=== PATIENT | male | born 1950 | race Caucasian/White ===

== ENCOUNTER 2017-02-09 14:39 | Inpatient (IN) | payer MEDICARE, OTHER ==
[2017-02-09] MEDS ORDERED: Azithromycin 500 MG VIAL ONE (15:16)
[2017-02-09] MEDS ORDERED: Lorazepam 2 MG/ML VIAL ONE (15:17)
[2017-02-09 15:22] LABS: Hemoglobin 14.1 g/dL (14.0-18.0); Mean Corpuscular HGB CONC 33.7 g/dL (32.0-36.0); Mean Corpuscular Hemoglobin 33.9 pg (27.0-31.0); Mean Platelet Volume 7.6 fL (7.4-10.4); Platelet Count 384 thou/uL (130-400); RBC Distribution Width 13.5 % (11.5-14.5); Red Blood Cell (RBC) Count 4.18 mill/uL (4.70-6.10); White Blood Cell (WBC) Count 29.6 thou/uL (4.8-10.8)
[2017-02-09] MEDS ORDERED: Piperacillin/Tazobactam 4.5 GM in Sodium Chloride 0.9% 100 ML IVPB SCH (15:30)
[2017-02-09 15:33] LABS: ALT (SGPT) 12 U/L (8-55); AST (SGOT) 11 U/L (5-34); Albumin 3.6 g/dL (3.4-4.8); Alkaline Phosphatase 113 U/L (40-150); Anion Gap 11 mmol/L (10-20); BUN (Urea Nitrogen) 10 mg/dL (8.4-25.7); Bilirubin, Total 0.6 mg/dL (0.2-1.2); Calc. Creatinine Clearance 0 mL/min (70-130); Calcium 9.4 mg/dL (7.8-10.44); Carbon Dioxide 27 mmol/L (23-31); Chloride 103 mmol/L (98-107); Estimated GFR-MDRD Greater than 90; Globulin 3.4 g/dL (2.4-3.5); Glucose 85 mg/dL (80-115); Potassium 4.1 mmol/L (3.5-5.1); Sodium 137 mmol/L (136-145)
[2017-02-09 15:51] LABS: CKMB 1.1 ng/mL (0-6.6); Lymphocytes 19 % (21-51); MDiff Complete? YES; Monocytes 6 % (0-10); Neutrophil 75 % (42-75); PLT Morphology Comment Appears Adequate; Troponin I 0.018 ng/mL (< 0.028)
--- NOTE | 2017-02-09 16:11 | RAD ---
FRONTAL VIEW CHEST: Date: 02/09/17 INDICATION: Sepsis. Difficulty breathing. FINDINGS: There is abnormal dense consolidation of the right apex with internal lucency. Rounded region of alve olar and interstitial density is seen at the lateral left mid lung zone. There is a spiculated nodula r density with adjacent linear density at the upper to mid right lung. Diffuse interstitial prominenc e of each lung present. There is hyperinflation compatible with COPD. IMPRESSION: Multifocal pleural and parenchymal opacities of the lungs bilaterally. Findings may be on the basis o f atypical infectious process. Underlying neoplasm not excluded. Recommend pulmonary medicine consult ation for further care. POS: ARMANDO
[2017-02-09 18:58] LABS: Troponin I 0.025 ng/mL (< 0.028)
[2017-02-09] MEDS ORDERED: Ondansetron HCl/PF 4 MG/2 ML Vial IVP PRN ×2 (19:35→19:36)
[2017-02-09] MEDS ORDERED: Ondansetron ODT 4 MG TAB SL PRN (19:35)
[2017-02-09] MEDS ORDERED: Acetaminophen 325 MG TAB PO PRN (19:35)
[2017-02-09] MEDS ORDERED: Benzonatate 100 MG CAP PO PRN (19:36)
[2017-02-09] MEDS ORDERED: Diabetic Tussin 200 MG/10 ML UDCUP PO PRN (19:36)
[2017-02-09] MEDS ORDERED: Ondansetron ODT 4 MG TAB PO PRN (19:36)
[2017-02-09] MEDS ORDERED: Acetaminophen 500 MG TAB PO PRN (19:36)
[2017-02-09] MEDS ORDERED: VANCOMYCIN IVPB PRN (19:58)
[2017-02-09] MEDS ORDERED: Budesonide 0.5 MG/2 ML NEB INH SCH (20:00)
[2017-02-09] MEDS: Nicotine 21 MG PATCH TD SCH (21:33)
[2017-02-09] MEDS: Famotidine/PF 20 mg/2ml Vial SLOW IVP SCH (21:38)
[2017-02-09 21:47] LABS: Troponin I 0.018 ng/mL (< 0.028)
[2017-02-09] MEDS ORDERED: Vancomycin HCl 1 GM in Premix Bag 1 BAG IVPB SCH (22:30)
--- NOTE | 2017-02-09 22:42 | HP ---
DATE OF ADMISSION: 02/09/2017 PRIMARY CARE PHYSICIAN: Zev guzmán. CHIEF COMPLAINT: Cough, fever with general weakness. HISTORY OF PRESENT ILLNESS: This is a 66-year-old male, who presents to [facility] Emergency Department accompanied by his daughter, who provides all of the history as patient is currently lethargic and unable to coherently give a history. The patient apparently was r ecently admitted to [facility] in 01/01/2011 for apparent pneumonia that the daught er reports was methicillin resistant Staphylococcus aureus, treated in the ICU at [facility] for approximately 2 weeks. The patient was subsequently transferred to inpatient [facility] the [facility] system for another 2 weeks, being discharged home on 01/31/2017 . Due to patient's deconditioned status, the daughter brought the patient back to the [facility] area to live with her. The daughter reports that she received information regarding inpatien t rehabilitation in the [facility] by case management in the [facility]. The meredith pedro was slated for assessment for inpatient rehabilitation on 02/12/2017. The daughter reports maikel kim became increasing lethargic, unable to get out of bed with increased cough, fever and shortness of breath. The patient has had difficulty with ambulation using rolling walker after apparently sust aining a neck injury after mechanical fall in early 2016. The patient has had a series of physical d ecline with apparent cervical spine fracture as well as cervical spine stenosis requiring surgical in tervention in 06/2016. The patient apparently had difficulty using his upper extremities for multipl e weeks after the procedure requiring rehabilitation. The patient apparently sustained a mechanical fall after the procedure, striking his face. The daughter has made multiple trips to [facility] to retrieve a father or assist with his care as he has been progressively unable to care for himself . The daughter is concerned patient will fall again due to severe weakness and deconditioned status. The patient apparently has lost approximately 50 pounds according to the daughter over the last 6-8 months. Patient does not use any home oxygen or nebulize solution. The patient does have metered d ose inhalers. The patient's appetite has increased according to the daughter. However, there has be en no result of weight gain. Patient has not had alcohol in the last several months due to the hospi talizations. The patient has been smoking up until the last 24-48 hours prior to this evaluation. T he daughter reports longstanding history of chronic alcoholism, but confirms no recent alcohol ingest ion. In the emergency room, the patient underwent extensive evaluation including chest imaging showi ng multifocal pneumonia as well as evidence for sepsis. Patient received IV Zosyn, azithromycin, van comycin as well as receiving 3 liters of normal saline due to hypotension. The patient also received Ativan 1 mg. The patient was also given bronchodilator therapy, acetaminophen and general supportiv e measures. The patient was referred to the Hospitalist Service for admission. PAST MEDICAL HISTORY: 1. Methicillin-resistant staphylococcus aureus pneumonia in 01/2017. 2. Chronic obstructive pulmonary disease. 3. Tobacco abuse. 4. History of alcohol abuse. 5. History of multiple falls. 6. Cervical spine stenosis with upper extremity paresthesias and weakness. 7. Moderate to nkinyw-cmegxqm-guxetdq malnutrition. 8. Deconditioning. 9. History of depression. 10. Question of hypertension. PAST SURGICAL HISTORY: 1. Status post cervical spine fusion secondary to cervical spine stenosis. 2. History of rib fracture with repair. 3. Status post splenectomy. CURRENT MEDICATIONS: List may not be complete. We will need to be confirmed with family members. 1. Zoloft 75 mg 1 tab p.o. at bedtime. 2. Amlodipine 5 mg one tablet p.o. daily. ALLERGIES: No known drug allergies. FAMILY HISTORY: Positive for hypertension. SOCIAL HISTORY: Patient resides currently with his daughter in the [facility]. Vane munson of the [place], [place]. 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 History of alcohol abuse, q uantity unknown. Smokes up to a half a pack of cigarettes daily. History of marijuana use, last use d 02/08/2017. REVIEW OF SYSTEMS: The following complete review of systems wasnegative, unless otherwise mentioned in the HPI or below: CONSTITUTIONAL: Weight loss or gain, ability to conduct usual activities. SKIN: Rash, itching. EYES: Double vision, pain. ENT/MOUTH: Nose bleeding, neck stiffness, pain, tenderness. CARDIOVASCULAR: Palpitations, dyspnea on exertion, orthopnea. RESPIRATORY: Shortness of breath, wheezing, cough, hemoptysis, fever or night sweats. GASTROINTESTINAL: Poor appetite, abdominal pain, heartburn, nausea, vomiting, constipation, or diarr hea. GENITOURINARY: Urgency, frequency, dysuria, nocturia. MUSCULOSKELETAL: Pain, swelling. NEUROLOGIC/PSYCHIATRIC: Anxiety, depression. ALLERGY/IMMUNOLOGIC: Skin rash, bleeding tendency. Otherwise negative except as stated per HPI. PHYSICAL EXAMINATION: VITAL SIGNS: On admission, blood pressure 115/76, pulse 121, respiratory rate 30, temperature 99.9 d egrees Fahrenheit, O2 saturation 96% on 2 liters per minute by nasal cannula. GENERAL APPEARANCE: This is a disheveled frail and ill-appearing 66-year-old male. HEENT: Pupils are equal, round, and reactive to light and accommodation. Extraocular muscles are in tact. No scleral icterus, no conjunctival injection. Nares patent. OP is clear. Oral mucosa dry. Teeth in poor repair. NECK: Supple, no cervical adenopathy, no thyromegaly, no carotid bruits, no JVD appreciated. Cervic al spine with full active and passive range of motion. No meningeal signs appreciated. CHEST: Diminished in the bases bilaterally. Bilateral rhonchi noted. CARDIOVASCULAR: S1, S2 with distant heart sounds. ABDOMEN: Rounded, soft, nontender, nondistended. Bowel sounds are positive in all 4 quadrants. The re is no hepatosplenomegaly, no abdominal bruits, no rebound or guarding appreciated. EXTREMITIES: Warm and dry with poor turgor. Pulses palpable distally at the dorsalis pedis, posteri or tibial, and popliteal arteries bilaterally. Capillary refill is less than 2 seconds. Generalized muscle atrophy noted. NEUROLOGIC: Lethargic, does not respond to questions. Moves lower extremities spontaneously. PERTINENT LABORATORY AND X-RAY FINDINGS: Basic metabolic profile within normal limits. Lactic acid level 1.6, calcium 9.4. LFTs within normal limits. Troponin I negative x1. Albumin is 3.6. CBC sh owed a white blood cell count 29.6, hemoglobin 14, hematocrit 42, MCV 101, platelet count 384, 75% ne utrophils. Portable chest x-ray dated 02/09/2017, showed multifocal infiltrates concerning for pneum onia. EKG dated 02/09/2017, by my interpretation shows sinus tachycardia with heart rates in the 120 s. Attenuated R waves noted in the precordial leads. Normal axis. No acute ST-T wave changes appre ciated. ASSESSMENT AND PLAN: 1. Sepsis. Patient will be admitted to the intermediate care unit. We will continue general sepsis protocol. Continue intravenous normal saline at 125 mL per hour. Serial lactate assessment per pro tocol. Continue vancomycin 1 gram IV q.12 hours with additional Levaquin 750 mg IV q.24 hours, and Z osyn 3.375 grams IV q.6 hours. Myles cultures pending. We will add additional sputum culture. 2. Multifocal pneumonia. History of methicillin-resistant Staphylococcus aureus pneumonia in 7. We will continue coverage for methicillin-resistant Staphylococcus aureus, pending sputum culture . Continue DuoNebs q.4 hours, Solu-Medrol 40 mg IV q.6 hours, and Pulmicort 0.5 mg nebulized b.i.d. Continue oxygen supplementation to maintain O2 saturation greater than or equal to 90%. The patient may need additional evaluation for home oxygen. 3. Toxic/metabolic encephalopathy. Secondarily to #1. We will continue treatment as outlined previ ously. Continue supportive measures. 4. Moderate protein-calorie malnutrition. Consider dietitian evaluation. Ensure t.i.d. with meals. 5. Tobacco abuse. Nicotine patch 21 mg transdermally daily. 6. Deconditioning with history of mechanical falls. We will obtain PT, OT evaluation in the a.m. C onsider inpatient rehabilitation evaluation. 7. Question of dysphagia. We will obtain speech consult for evaluation. N.p.o. except medications, pending evaluation. 8. Prophylaxis. Sequential compression devices while in bed. Pepcid 20 mg IV q.12 hours. General fall precautions. 9. Code status is FULL. Surrogate medical decision maker is the patient's daughter.
[2017-02-09] MEDS: Lorazepam 2 MG/ML VIAL SLOW IVP PRN (23:09)
[2017-02-10] MEDS: Piperacillin/Tazobactam 3.375 GM in Sodium Chloride 0.9% 100 ML IVPB SCH ×4 (00:32→17:09)
[2017-02-10] MEDS: Lorazepam 2 MG/ML VIAL SLOW IVP PRN ×6 (03:48→22:40)
[2017-02-10 05:40] LABS: ALT (SGPT) 10 U/L (8-55); AST (SGOT) 8 U/L (5-34); Albumin 2.8 g/dL (3.4-4.8); Alkaline Phosphatase 91 U/L (40-150); Anion Gap 11 mmol/L (10-20); BUN (Urea Nitrogen) 9 mg/dL (8.4-25.7); Calc. Creatinine Clearance 116 mL/min (70-130); Calcium 8.6 mg/dL (7.8-10.44); Carbon Dioxide 24 mmol/L (23-31); Chloride 106 mmol/L (98-107); Estimated GFR-MDRD Greater than 90; Globulin 2.8 g/dL (2.4-3.5); Glucose 86 mg/dL (80-115); Potassium 3.7 mmol/L (3.5-5.1); Protein, Total 5.6 g/dL (5.8-8.1); Sodium 137 mmol/L (136-145)
[2017-02-10] MEDS: Vancomycin HCl 1 GM in Premix Bag 1 BAG IVPB SCH ×3 (05:44→22:42)
[2017-02-10 05:48] LABS: Band 1 % (5-11); Hemoglobin 11.1 g/dL (14.0-18.0); Lymphocytes 19 % (21-51); MDiff Complete? YES; Mean Corpuscular HGB CONC 32.8 g/dL (32.0-36.0); Mean Corpuscular Hemoglobin 32.9 pg (27.0-31.0); Mean Platelet Volume 7.7 fL (7.4-10.4); Monocytes 9 % (0-10); Neutrophil 71 % (42-75); Platelet Count 351 thou/uL (130-400); Red Blood Cell (RBC) Count 3.38 mill/uL (4.70-6.10); White Blood Cell (WBC) Count 21.5 thou/uL (4.8-10.8)
[2017-02-10] MEDS: Famotidine/PF 20 mg/2ml Vial SLOW IVP SCH ×2 (08:28→21:43)
[2017-02-10] MEDS ORDERED: FLU VACC TS2017-18 (>65YR) 0.5 ML SYRINGE IM ONE (09:00)
[2017-02-10] MEDS: Budesonide 0.5 MG/2 ML NEB INH SCH ×2 (09:02→18:40)
--- NOTE | 2017-02-10 10:30 | CON ---
DATE OF CONSULTATION: 02/10/2017 HISTORY: He is a 66-year-old gentleman who apparently lives in the [facility] [place] [facility], [facility] or [facility] where he underwent cervical surgery, a laminectomy. He was taken to the rehab for r ehab purposes, but apparently he was hospitalized there for a month from 01/01/2017 for pneumonia. E ivan since his surgery he has been having difficulty getting around, having severe pain in his right a rm. He fell down and apparently fractured his back again. When his condition apparently got worse, he started feeling bad, his daughter transferred him over he re for ongoing care. The patient has longstanding history of alcohol and tobacco abuse, smoking up to a pack a day. He fontnaa s a diagnosis of COPD, he has been coughing up some purulent sputum. PAST MEDICAL HISTORY: Chronic obstructive pulmonary disease, alcohol abuse, a recent cervical spine surgery with significant pain, deconditioning, depression, hypertension. PAST SURGICAL HISTORY: Cervical spine, status post splenectomy. MEDICATIONS FROM HOME: Includes Zoloft 75, amlodipine. SOCIAL/FAMILY HISTORY: Worked for the [employer]. ALLERGIES: None. He has now been started on Levaquin, Zosyn, and vancomycin. His home medicines is Zoloft, Lyrica, Robaxin, DuoNeb, Symbicort. REVIEW OF SYSTEMS: Otherwise unremarkable. PHYSICAL EXAMINATION: GENERAL: He is cachectic looking gentleman. VITAL SIGNS: Sats are 97 on 2 liters, pulse 100, temperature 98, blood pressure 114/81. CHEST: Chest revealed bilateral rhonchi and crackles. CARDIAC: Sinus tachycardia. ABDOMEN: Soft, no masses. LABORATORY DATA: White count 21,000, H&H 11 and 33, platelet count 351. Electrolytes are normal. X-ray shows multifocal pneumonia with right upper lung mass-like density. IMPRESSION: 1. Presumed bilateral bronchopneumonia. 2. Tobacco abuse. 3. Staph pneumonia. 4. Severe deconditioning. 5. Cervical surgery. 6. Alcohol abuse. 7. Tobacco abuse. PLAN: He is on adequate antibiotics. If he gets Staph in the sputum I will switch him over to Zyvox. Otherwise, continue neb treatments, supportive care, steroids. Consider CT of the chest. I will follow.
[2017-02-10 13:20] LABS: Vancomycin, Trough 15.1 ug/mL
--- NOTE | 2017-02-10 15:52 | PDOC.PN ---
- Subjective Encounter Start Date: 02/10/17 Encounter Start Time: 15:45 Subjective: f/u for sepsis and multifocal PNA currently on Vanc/Levaquin/Zosyn. -: ENTRY LEVEL [place]GAL states dysphagia present. Pt stating he wants to eat despite -: potential risk. - Objective Resuscitation Status: Resuscitation Status FULL:Full Resuscitation MAR Reviewed: Yes Vital Signs & Weight: Vital Signs (12 hours) Temp Pulse Pulse Pulse Resp BP BP 02/10/17 15:00 99.0 F 99 18 02/10/17 12:11 96 21 H 02/10/17 11:00 98.6 F 99 20 02/10/17 10:20 108 H 103 H 116/77 111/74 02/10/17 09:03 02/10/17 09:01 102 H 02/10/17 08:00 98.5 F 98 20 02/10/17 07:00 98.5 F 98 20 02/10/17 04:19 97.4 F L 95 22 H BP Pulse Ox 02/10/17 15:00 115/76 97 02/10/17 12:11 99 02/10/17 11:00 111/74 95 02/10/17 10:20 02/10/17 09:03 97 02/10/17 09:01 96 02/10/17 08:00 02/10/17 07:00 114/81 96 02/10/17 04:19 118/74 100 Weight Admit Weight 132 lb 1 oz Weight 131 lb 4 oz I&O: 02/09/17 02/10/17 02/11/17 06:59 06:59 06:59 Intake Total 1050 Output Total 550 Balance 500 Result Diagrams: 02/10/17 04:29 02/10/17 04:29 Additional Labs: Microbiology 02/09/17 14:55 Nasal swab Influenza Types A,B Direct EIA - Final 02/09/17 22:34 Sputum Respiratory Culture - Preliminary 02/09/17 14:57 Venous blood - Right Hand Blood Culture - Preliminary Specimen has been received and culture in progress. No Growth to date. 02/09/17 14:50 Venous blood - Left Arm Blood Culture - Preliminary Specimen has been received and culture in progress. No Growth to date. Laboratory Tests 02/09/17 02/10/17 14:50 12:59 WBC 29.6 H Hgb 14.1 Vancomycin Trough 15.1 EKG Reviewed by me: Yes (Tele - SR, NSVT 10 beats) Phys Exam - Physical Examination ill-appearing, awake HEENT: PERRLA, oral pharynx no lesions Neck: no JVD, supple diminished in bases coarse sounds bilat Cardiovascular: RRR Gastrointestinal: soft, non-tender, no distention, positive bowel sounds generalized edema Musculoskeletal: no edema, pulses present Neurological: moves all 4 limbs Psychiatric: A&O x 3 Skin: normal turgor, cap refill <2 seconds Dx/Plan (1) Sepsis Code(s): A41.9 - SEPSIS, UNSPECIFIED ORGANISM Status: Acute Comment: Suspected pulmonary source, continue Zosyn/Vanc/Levaquin pending final cx results, IVF's (2) Healthcare associated bacterial pneumonia Code(s): J15.9 - UNSPECIFIED BACTERIAL PNEUMONIA Status: Acute Comment: multifocal involvement, see #1 above, Pulmonology following, Duonebs, Solumedrol (3) Toxic metabolic encephalopathy Code(s): G92 - TOXIC ENCEPHALOPATHY Status: Acute Comment: Multifactorial given presentation, supportive measures (4) Dysphagia Code(s): R13.10 - DYSPHAGIA, UNSPECIFIED Status: Chronic Qualifiers: Dysphagia type: oropharyngeal phase Qualified Code(s): R13.12 - Dysphagia, oropharyngeal phase Comment: soft diet, re-evaluate swallowing function in am (5) Moderate protein-calorie malnutrition Code(s): E44.0 - MODERATE PROTEIN-CALORIE MALNUTRITION Status: Chronic Comment: Ensure TID when taking po (6) Tobacco abuse Code(s): Z72.0 - TOBACCO USE Status: Chronic Comment: Nicotine patch 21mg TD daily (7) Physical deconditioning Code(s): R53.81 - OTHER MALAISE Status: Chronic Comment: PT/OT for functional assessment, fall risk precautions - Plan continue antibiotics, PT/OT, geriatric social worker, speech therapy, respiratory therapy, DVT proph w/SCDs Stable currently -: Continue Vanc/Zosyn and Levaquin for next 24h then de-escalate -: Await final cx results -: Continue Solumedrol, Duonebs -: Ativan 2mg IV q4h prn anxiety * AM lab: CMP, CBC, Mg++, PO3, TSH
[2017-02-10 16:44] LABS: Base Excess-Venous 1.4 mmol/L (-30.0-30.0); Bicarbonate (HCO3v) 25.7 mmol/L (1.0-85.0); CO2 Tension (PvCO2) 38.4 mmHg (41.0-51.0); O2 Tension (PvO2) 47.8 mmHg (35.0-45.0); vO2 Saturation-calc 84.6 % (0.0-100.0)
[2017-02-10 16:45] LABS: Calcium, Ionized 1.08 mmol/L (1.12-1.32); Hemoglobin - Calc 14.7 g/dL (12.0-18.0); Potassium 4.1 mmol/L (3.4-4.7); T. Carbon Dioxide 26.8 mmol/L (1.0-85.0)
[2017-02-10 16:46] LABS: pH (Venous) 7.433 (7.35-7.45)
[2017-02-10] MEDS: Nicotine 21 MG PATCH TD SCH (22:37)
[2017-02-11] MEDS: Piperacillin/Tazobactam 3.375 GM in Sodium Chloride 0.9% 100 ML IVPB SCH ×4 (00:58→17:56)
[2017-02-11] MEDS: Vancomycin HCl 1 GM in Premix Bag 1 BAG IVPB SCH ×3 (04:59→22:59)
[2017-02-11] MEDS: Lorazepam 2 MG/ML VIAL SLOW IVP PRN ×3 (04:59→19:37)
[2017-02-11 06:25] LABS: ALT (SGPT) 11 U/L (8-55); AST (SGOT) 8 U/L (5-34); Alkaline Phosphatase 85 U/L (40-150); Anion Gap 11 mmol/L (10-20); BUN (Urea Nitrogen) 9 mg/dL (8.4-25.7); Bilirubin, Total 0.7 mg/dL (0.2-1.2); Calc. Creatinine Clearance 114 mL/min (70-130); Calcium 9.2 mg/dL (7.8-10.44); Carbon Dioxide 24 mmol/L (23-31); Chloride 104 mmol/L (98-107); Estimated GFR-MDRD Greater than 90; Glucose 151 mg/dL (80-115); Magnesium 1.8 mg/dL (1.6-2.6); Phosphorus 3.4 mg/dL (2.3-4.7); Potassium 3.7 mmol/L (3.5-5.1); Sodium 135 mmol/L (136-145)
[2017-02-11 06:26] LABS: Band 4 % (5-11); Hemoglobin 11.4 g/dL (14.0-18.0); Lymphocytes 6 % (21-51); MDiff Complete? YES; Mean Corpuscular Hemoglobin 32.7 pg (27.0-31.0); Mean Corpuscular Volume 98.9 fl (80.0-94.0); Mean Platelet Volume 7.4 fL (7.4-10.4); Monocytes 5 % (0-10); Neutrophil 85 % (42-75); Platelet Count 371 thou/uL (130-400); RBC Distribution Width 12.8 % (11.5-14.5); Red Blood Cell (RBC) Count 3.48 mill/uL (4.70-6.10)
[2017-02-11] MEDS: Budesonide 0.5 MG/2 ML NEB INH SCH ×2 (08:38→19:01)
[2017-02-11] MEDS: Famotidine/PF 20 mg/2ml Vial SLOW IVP SCH ×2 (08:42→20:00)
--- NOTE | 2017-02-11 09:30 | PRG ---
DATE OF SERVICE: 02/11/2017 This morning he is more awake and responsive. PHYSICAL EXAMINATION: VITAL SIGNS: Blood pressure is 114/78, sats are 950% on 2 liters, temperature is 97, respiratory ra te 22. CHEST: Extensive rhonchi and crackles. CARDIAC: Normal S1-S2. No gallops. ABDOMEN: Soft. No masses. LABORATORY: White count 13,000, hemoglobin and hematocrit 10 and 34, platelet count is 371. IMPRESSION: 1. Respiratory failure. 2. Bilateral bronchopneumonia. 3. Severe deconditioning. 4. Staph. PLAN: Zosyn, vancomycin and steroids. Levaquin. Await sputum cultures. X-ray, may consider repeating CT of his chest depending upon his x-ray report. Continue aggressive PT. We will follow.
[2017-02-11] MEDS: Pregabalin 75 MG CAP PO SCH ×2 (16:03→20:00)
--- NOTE | 2017-02-11 16:26 | PDOC.PN ---
- Subjective Encounter Start Date: 02/11/17 Encounter Start Time: 16:20 Subjective: f/u sepsis and multifocal HCAP on Vanc/Levaquin/Zosyn. Nsg reports -: pt still hypoxic with minimal movement. Pt eating with risks of aspiration -: but prefers to eat over feeding tube. - Objective Resuscitation Status: Resuscitation Status FULL:Full Resuscitation MAR Reviewed: Yes Vital Signs & Weight: Vital Signs (12 hours) Temp Pulse Resp BP Pulse Ox 02/11/17 16:05 98 21 H 97 02/11/17 12:00 97.5 F L 99 16 106/74 93 L 02/11/17 08:39 93 L 02/11/17 08:36 99 22 H 94 L 02/11/17 08:20 97.7 F 93 17 94 L 02/11/17 07:00 97.7 F 93 17 114/78 94 L Weight Admit Weight 132 lb 1 oz Weight 128 lb 9.6 oz I&O: 02/10/17 02/11/17 02/12/17 06:59 06:59 06:59 Intake Total 1050 1470 Output Total 550 1420 Balance 500 50 Result Diagrams: 02/11/17 05:40 02/11/17 05:40 Additional Labs: Microbiology 02/09/17 22:34 Sputum Respiratory Culture - Final 02/09/17 14:55 Nasal swab Influenza Types A,B Direct EIA - Final 02/11/17 Unknown Sputum - Unspecified Respiratory Culture - Preliminary 02/09/17 22:34 Sputum Respiratory Culture - Preliminary 02/09/17 14:57 Venous blood - Right Hand Blood Culture - Preliminary Specimen has been received and culture in progress. No Growth to date. 02/09/17 14:57 Venous blood - Right Hand Blood Culture - Preliminary NO GROWTH AT 48 HOURS 02/09/17 14:50 Venous blood - Left Arm Blood Culture - Preliminary Specimen has been received and culture in progress. No Growth to date. 02/09/17 14:50 Venous blood - Left Arm Blood Culture - Preliminary NO GROWTH AT 48 HOURS Laboratory Tests 02/09/17 02/10/17 02/10/17 14:50 04:29 12:59 WBC 29.6 H 21.5 H Hgb 14.1 11.1 L Phosphorus Magnesium TSH 3rd Generation Vancomycin Trough 15.1 02/11/17 02/11/17 05:40 05:40 WBC Hgb Phosphorus 3.4 Magnesium 1.8 TSH 3rd Generation 0.5772 Vancomycin Trough EKG Reviewed by me: Yes (Tele - sinus tach in low 100's) Phys Exam - Physical Examination frail, ill-appearing HEENT: PERRLA, oral pharynx no lesions Neck: no JVD, supple diminished in bases, scattered coarse sounds tachycardic Gastrointestinal: soft, non-tender, no distention, positive bowel sounds generalized atrophy Musculoskeletal: no edema, pulses present Neurological: moves all 4 limbs Skin: normal turgor, cap refill <2 seconds Deviation from normal: Smith in place with messi urine Dx/Plan (1) Sepsis Code(s): A41.9 - SEPSIS, UNSPECIFIED ORGANISM Status: Acute Comment: Suspected pulmonary source, continue Zosyn/Vanc/Levaquin pending final cx results, IVF's (2) Healthcare associated bacterial pneumonia Code(s): J15.9 - UNSPECIFIED BACTERIAL PNEUMONIA Status: Acute Comment: multifocal involvement, see #1 above, Pulmonology following, Duonebs, Solumedrol (3) Toxic metabolic encephalopathy Code(s): G92 - TOXIC ENCEPHALOPATHY Status: Acute Comment: Multifactorial given presentation, supportive measures (4) Dysphagia Code(s): R13.10 - DYSPHAGIA, UNSPECIFIED Status: Chronic Qualifiers: Dysphagia type: oropharyngeal phase Qualified Code(s): R13.12 - Dysphagia, oropharyngeal phase Comment: soft diet, re-evaluate swallowing function in am (5) Moderate protein-calorie malnutrition Code(s): E44.0 - MODERATE PROTEIN-CALORIE MALNUTRITION Status: Chronic Comment: Ensure TID when taking po (6) Tobacco abuse Code(s): Z72.0 - TOBACCO USE Status: Chronic Comment: Nicotine patch 21mg TD daily (7) Physical deconditioning Code(s): R53.81 - OTHER MALAISE Status: Chronic Comment: PT/OT for functional assessment, fall risk precautions - Plan continue antibiotics, PT/OT, social work therapist, speech therapy, respiratory therapy, out of bed/ambulate, DVT proph w/SCDs Stable currently -: Continue current IV abx another 24h then de-escalate -: Duonebs q4h -: Solumedrol 40mg IV q6h -: SNF/Rehab options * AM lab: BMP, CBC * Transfer to telemetry
[2017-02-11] MEDS: Methocarbamol 500 MG TAB PO SCH ×2 (16:29→20:02)
[2017-02-11] MEDS: Nicotine 21 MG PATCH TD SCH (20:01)
[2017-02-11] MEDS: Haloperidol Lactate 5 MG/ML VIAL IM PRN (22:48)
[2017-02-12] MEDS: Piperacillin/Tazobactam 3.375 GM in Sodium Chloride 0.9% 100 ML IVPB SCH ×4 (00:28→18:16)
[2017-02-12 05:25] LABS: Anion Gap 12 mmol/L (10-20); BUN (Urea Nitrogen) 14 mg/dL (8.4-25.7); Calc. Creatinine Clearance 105 mL/min (70-130); Calcium 9.4 mg/dL (7.8-10.44); Carbon Dioxide 27 mmol/L (23-31); Chloride 105 mmol/L (98-107); Estimated GFR-MDRD Greater than 90; Glucose 140 mg/dL (80-115); Potassium 3.6 mmol/L (3.5-5.1); Sodium 140 mmol/L (136-145)
[2017-02-12] MEDS: Vancomycin HCl 1 GM in Premix Bag 1 BAG IVPB SCH (05:46)
[2017-02-12 05:49] LABS: Band 5 % (5-11); Hemoglobin 11.6 g/dL (14.0-18.0); Lymphocytes 4 % (21-51); MDiff Complete? YES; Mean Corpuscular HGB CONC 32.2 g/dL (32.0-36.0); Mean Corpuscular Hemoglobin 32.2 pg (27.0-31.0); Mean Platelet Volume 7.6 fL (7.4-10.4); Monocytes 2 % (0-10); Neutrophil 89 % (42-75); Platelet Count 392 thou/uL (130-400); Red Blood Cell (RBC) Count 3.61 mill/uL (4.70-6.10); White Blood Cell (WBC) Count 32.8 thou/uL (4.8-10.8)
[2017-02-12] MEDS: Budesonide 0.5 MG/2 ML NEB INH SCH ×2 (07:11→18:56)
--- NOTE | 2017-02-12 08:58 | RAD ---
SINGLE VIEW OF THE CHEST: Comparison: 02-09-17 History: Ventilated patient with respiratory failure. FINDINGS: Single view of the chest shows a normal sized cardiomediastinal silhouette. There are stable opacitie s in the right apex. There are multifocal opacities in the lungs, unchanged. Increased interstitial m arkings are present. There may be small left pleural effusions. IMPRESSION: Stable exam. POS: DL
[2017-02-12] MEDS: Pregabalin 75 MG CAP PO SCH ×3 (09:24→20:24)
[2017-02-12] MEDS: Methocarbamol 500 MG TAB PO SCH ×3 (09:25→20:24)
[2017-02-12] MEDS: Famotidine/PF 20 mg/2ml Vial SLOW IVP SCH ×2 (09:25→20:18)
[2017-02-12] MEDS ORDERED: Furosemide 20 MG/2 ML VIAL IVP SCH (10:15)
--- NOTE | 2017-02-12 11:37 | PRG ---
DATE OF SERVICE: 02/12/2017 This morning he is having more difficulty breathing. He is clearly having to use of accessory muscles. PHYSICAL EXAMINATION: VITAL SIGNS: Respirations 30, blood pressure 130/95, sats are 96%, pulse 97. CHEST: Chest revealed diffuse wheezing. CARDIAC: Sinus tachycardia. ABDOMEN: No masses. LABORATORY DATA: White count 32,000, H&H 10 and 33, platelet count 309. Electrolytes normal. Chest x-ray shows worsening left-sided infiltrate,effusion and infilterate the right base. IMPRESSION: 1. Bilateral bronchopneumonia, immunocompromised. 2. Severe deconditioning. 3. Encephalopathy. PLAN: Discussed with his daughter ongoing care, he may need to be intubated. Continue aggressive neb treatments, steroids, and antibiotics. I will follow. One-half hour critical care time. AGATHA
[2017-02-12] MEDS: Haloperidol Lactate 5 MG/ML VIAL IM PRN (12:37)
--- NOTE | 2017-02-12 13:18 | PDOC.PN ---
- Subjective Encounter Start Date: 02/12/17 Encounter Start Time: 12:00 Subjective: RESTING COMFORTABLY - Objective Resuscitation Status: Resuscitation Status FULL:Full Resuscitation MAR Reviewed: Yes Vital Signs & Weight: Vital Signs (12 hours) Temp Pulse Resp BP Pulse Ox 02/12/17 11:21 97.5 F L 95 20 117/85 106 H 02/12/17 10:23 5 L 26 H 98 02/12/17 10:22 102 H 26 H 98 02/12/17 09:32 110 H 29 H 100 02/12/17 08:28 115 H 02/12/17 08:00 98.3 F 97 20 97 02/12/17 07:16 98.3 F 97 20 131/95 H 106 H 02/12/17 07:09 107 H 24 H 97 02/12/17 04:36 97 02/12/17 04:00 106 H 24 H 110/74 96 02/12/17 03:45 95 02/12/17 03:24 103 H 20 85 L Weight Admit Weight 132 lb 1 oz Weight 125 lb 4.8 oz I&O: 02/11/17 02/12/17 02/13/17 06:59 06:59 06:59 Intake Total 1470 1675 Output Total 1420 845 Balance 50 830 Result Diagrams: 02/12/17 04:02 02/12/17 04:02 Phys Exam - Physical Examination Constitutional: NAD HEENT: moist MMs, sclera anicteric Neck: supple, full ROM Respiratory: no wheezing, no rales Cardiovascular: no significant murmur SINUS TACHY Gastrointestinal: soft, non-tender Musculoskeletal: no edema, pulses present Neurological: non-focal Psychiatric: A&O x 3 Dx/Plan (1) Healthcare associated bacterial pneumonia Code(s): J15.9 - UNSPECIFIED BACTERIAL PNEUMONIA Status: Acute Comment: multifocal involvement, see #1 above, Pulmonology following, Spring Donisumedrol (2) Sepsis Code(s): A41.9 - SEPSIS, UNSPECIFIED ORGANISM Status: Acute Comment: Suspected pulmonary source, continue Zosyn/Vanc/Levaquin pending final cx results, IVF's (3) Toxic metabolic encephalopathy Code(s): G92 - TOXIC ENCEPHALOPATHY Status: Acute Comment: Multifactorial given presentation, supportive measures (4) Dysphagia Code(s): R13.10 - DYSPHAGIA, UNSPECIFIED Status: Chronic Qualifiers: Dysphagia type: oropharyngeal phase Qualified Code(s): R13.12 - Dysphagia, oropharyngeal phase Comment: soft diet, re-evaluate swallowing function in am (5) Moderate protein-calorie malnutrition Code(s): E44.0 - MODERATE PROTEIN-CALORIE MALNUTRITION Status: Chronic Comment: Ensure TID when taking po (6) Physical deconditioning Code(s): R53.81 - OTHER MALAISE Status: Chronic Comment: PT/OT for functional assessment, fall risk precautions (7) Tobacco abuse Code(s): Z72.0 - TOBACCO USE Status: Chronic Comment: Nicotine patch 21mg TD daily - Plan cont current plan of care, continue antibiotics, PT/OT, respiratory therapy APPRECIATE RECCS PER PULMONARY AND SPEECH TX * .
[2017-02-12 13:23] LABS: Vancomycin, Trough 21.9 ug/mL
[2017-02-12] MEDS: Vancomycin HCl 750 MG in Sodium Chloride 0.9% 250 ML 250 ML IVPB SCH ×2 (14:37→22:05)
[2017-02-12] MEDS: Lorazepam 2 MG/ML VIAL SLOW IVP PRN ×2 (17:08→21:42)
[2017-02-12] MEDS: Linezolid 600 MG TAB PO SCH (17:09)
[2017-02-12] MEDS: Mometasone/Formoterol 120 PUFF INHALER INH SCH (18:57)
[2017-02-13] MEDS: Piperacillin/Tazobactam 3.375 GM in Sodium Chloride 0.9% 100 ML IVPB SCH ×4 (00:34→19:32)
[2017-02-13] MEDS: Linezolid 600 MG TAB PO SCH (04:14)
[2017-02-13] MEDS: Vancomycin HCl 750 MG in Sodium Chloride 0.9% 250 ML 250 ML IVPB SCH (06:29)
[2017-02-13] MEDS: Budesonide 0.5 MG/2 ML NEB INH SCH ×2 (07:51→19:08)
[2017-02-13] MEDS: Mometasone/Formoterol 120 PUFF INHALER INH SCH ×2 (07:51→19:28)
--- NOTE | 2017-02-13 07:59 | RAD ---
PORTABLE CHEST: History: Dyspnea. CCU follow up. Comparison: 02-12-17 FINDINGS/IMPRESSION: Confluent opacification of the right apex again noted. There are diffuse interstitial and alveolar in filtrates in both midline bolanos, more prominent on the left. Evidence of a left effusion. Findings are not significantly changed from yesterday. POS: [facility]
[2017-02-13] MEDS: Lorazepam 2 MG/ML VIAL SLOW IVP PRN ×3 (08:40→20:25)
[2017-02-13] MEDS: Famotidine/PF 20 mg/2ml Vial SLOW IVP SCH ×2 (08:40→20:23)
[2017-02-13] MEDS ORDERED: Furosemide 20 MG/2 ML VIAL SLOW IVP SCH (09:00)
[2017-02-13] MEDS: Linezolid 600 MG in Premix Bag 1 BAG IVPB SCH ×2 (09:41→22:08)
[2017-02-13] MEDS: Methocarbamol 500 MG TAB PO SCH ×3 (09:42→20:24)
[2017-02-13] MEDS: Pregabalin 75 MG CAP PO SCH ×3 (09:42→20:24)
--- NOTE | 2017-02-13 12:47 | PRG ---
DATE OF SERVICE: 02/13/2017 SUBJECTIVE: The patient this morning is awake, alert, and responsive, he is less agitated. PHYSICAL EXAMINATION: VITAL SIGNS: His blood pressure 106/76, sats 97% on 3 liters, respiratory rate 29. His I's and O's have been 1675 in and 845 out. CHEST: Bilateral rhonchi and crackles. CARDIAC: Normal S1 and S2. ABDOMEN: Soft, no masses. IMAGING: X-ray still shows bilateral infiltrates and right upper lung mass-like infiltrate. Being encephalopathic, he was given a diuretic. IMPRESSION: 1. Staphylococcus pneumonia, probably congestive heart failure. 2. Severe deconditioning. 3. Chronic obstructive pulmonary disease. PLAN: Switch him over to Zyvox. CT of the chest is being ordered. He is having problems with dysph agia, barium swallow will be ordered. If he fails, he is going to need a PEG. Clearly his long-term prognosis is grave. Family wants still pretty much all supportive care. Awaiting results of the echo. Lasix as needed.
--- NOTE | 2017-02-13 13:33 | PDOC.PN ---
- Subjective Encounter Start Date: 02/13/17 Encounter Start Time: 13:31 Subjective: I'm hungry, no other new complaints - Objective Resuscitation Status: Resuscitation Status FULL:Full Resuscitation MAR Reviewed: Yes Vital Signs & Weight: Vital Signs (12 hours) Temp Pulse Resp BP Pulse Ox 02/13/17 10:52 77 22 H 99 02/13/17 08:00 97.0 F L 77 22 H 3 L 02/13/17 07:52 97 02/13/17 07:48 72 28 H 97 02/13/17 07:04 97.7 F 70 18 106/76 98 02/13/17 04:00 97.8 F 56 L 18 103/71 98 02/13/17 03:17 100 02/13/17 02:02 66 24 H 115/64 96 Weight Admit Weight 132 lb 1 oz Weight 122 lb 1 oz I&O: 02/12/17 02/13/17 02/14/17 06:59 06:59 06:59 Intake Total 1675 900 Output Total 845 Balance 830 900 Result Diagrams: 02/12/17 04:02 02/12/17 04:02 Additional Labs: Accuchecks 02/12/17 15:53 POC Glucose 124 H Phys Exam - Physical Examination Constitutional: NAD HEENT: PERRLA, moist MMs, sclera anicteric Neck: full ROM Respiratory: wheezing present rhonchi Cardiovascular: RRR Gastrointestinal: soft, positive bowel sounds Musculoskeletal: edema present Neurological: non-focal, moves all 4 limbs Psychiatric: normal affect, A&O x 3 Dx/Plan (1) Healthcare associated bacterial pneumonia Code(s): J15.9 - UNSPECIFIED BACTERIAL PNEUMONIA Status: Acute Comment: multifocal involvement, see #1 above, Pulmonology following, Duonebs, Solumedrol (2) Sepsis Code(s): A41.9 - SEPSIS, UNSPECIFIED ORGANISM Status: Acute Comment: Suspected pulmonary source, continue Zosyn/Vanc/Levaquin pending final cx results, IVF's (3) Toxic metabolic encephalopathy Code(s): G92 - TOXIC ENCEPHALOPATHY Status: Acute Comment: Multifactorial given presentation, supportive measures (4) Dysphagia Code(s): R13.10 - DYSPHAGIA, UNSPECIFIED Status: Chronic Qualifiers: Dysphagia type: oropharyngeal phase Qualified Code(s): R13.12 - Dysphagia, oropharyngeal phase Comment: soft diet, re-evaluate swallowing function in am (5) Moderate protein-calorie malnutrition Code(s): E44.0 - MODERATE PROTEIN-CALORIE MALNUTRITION Status: Chronic Comment: Ensure TID when taking po (6) Physical deconditioning Code(s): R53.81 - OTHER MALAISE Status: Chronic Comment: PT/OT for functional assessment, fall risk precautions (7) Tobacco abuse Code(s): Z72.0 - TOBACCO USE Status: Chronic Comment: Nicotine patch 21mg TD daily - Plan cont current plan of care, continue antibiotics failed swallow..will consult GI for possible EGD or PEG. -: appreciate reccs per Pulmonary..echo pending and diurese. * .
--- NOTE | 2017-02-13 13:59 | RAD ---
MODIFIED BARIUM SWALLOW: The patient was given different consistencies of barium under fluoroscopic observation to assess swal lowing mechanism. HISTORY: Dysphagia. Feeding difficulties. FINDINGS: Mild swallowing dysfunction is noted. There is mild pooling in the piriform sinuses; however, the pa tient cleared well with swallowing. However, there is evidence of esophageal reflux with aspiration noted due to the reflux. See speech pathologist's recommendations. POS: [facility]
[2017-02-13 14:10] LABS: Vancomycin, Trough 15.4 ug/mL
[2017-02-13] MEDS: Haloperidol Lactate 5 MG/ML VIAL IM PRN (23:06)
[2017-02-14] MEDS: Piperacillin/Tazobactam 3.375 GM in Sodium Chloride 0.9% 100 ML IVPB SCH ×4 (01:08→17:31)
[2017-02-14 05:04] LABS: #Neutrophils 17.1 thou/uL (1.40-6.50); %Basophils 0.1 % (0.0-1.0); %Eosinophils 0.1 % (0.0-10.0); %Lymphocytes 9.4 % (21.0-51.0); %Monocytes 9.4 % (0.0-10.0); Hemoglobin 11.6 g/dL (14.0-18.0); Mean Corpuscular HGB CONC 33.5 g/dL (32.0-36.0); Mean Corpuscular Hemoglobin 33.2 pg (27.0-31.0); Mean Corpuscular Volume 99.1 fl (80.0-94.0); Mean Platelet Volume 7.7 fL (7.4-10.4); Platelet Count 354 thou/uL (130-400); RBC Distribution Width 12.6 % (11.5-14.5); White Blood Cell (WBC) Count 21.1 thou/uL (4.8-10.8)
[2017-02-14 05:11] LABS: Anion Gap 9 mmol/L (10-20); BUN (Urea Nitrogen) 27 mg/dL (8.4-25.7); Calc. Creatinine Clearance 98 mL/min (70-130); Carbon Dioxide 30 mmol/L (23-31); Chloride 102 mmol/L (98-107); Estimated GFR-MDRD Greater than 90; Glucose 127 mg/dL (80-115); Potassium 3.7 mmol/L (3.5-5.1); Sodium 137 mmol/L (136-145)
--- NOTE | 2017-02-14 06:20 | CON ---
DATE OF CONSULTATION: 02/13/2017 REASON FOR CONSULTATION: Dysphagia. HISTORY OF PRESENT ILLNESS: Mr. Garrido is a 66-year-old gentleman, who states he is from [place], [place]. He was here visiting his sister when he became ill. He was admitted with a multilobar pneum onia on 02/09/2017, and it has been felt that this likely is an aspiration pneumonia. Apparently, he presented here and he was lethargic and unable to give much history. Presently, his speech is prett y soft and he has been sleeping most of the day. The history reports that he had an MSRA Staph pneum onia on 01/01/2017, and then he was at inpatient rehabilitation. This was apparently in the [facility], and they discharged him on 01/31/2017. The patient's daughter brought him back to [place] to be with her. He has got worse and worse with more cough, fever, and shortness of breath. He was bro ught to the emergency room here. Apparently, the patient had a cervical spine injury, having a neck injury after a fall in early 2016. His cervical spine stenosis requiring surgery in 06/2016. He has a lot of weakness in upper extrem ities. In talking with the patient about his swallowing, he states for a couple of years, he has had problems with swallowing mainly with coughing and choking and regurgitation. He has lost about 50 p ounds in the past 6-8 months. He states he has been that he has a Zenker's diverticula. He states h e has never been operated on and was told that maybe they would if it got worse. The patient is a [facility], he has a history of chronic alcohol abuse. He has multifocal opacities in the lung and he continues on antibiotics and oxygen. He had a modified-barium swallow today that showed mild swa llowing dysfunction and some piriform pooling, but apparently there was some reflux with some aspirat ion noted to the reflux. The speech pathologist felt that he was at risk for aspiration. MEDICATIONS: Tylenol, DuoNeb, Tessalon, Pepcid, Randolph, Linezolid, levofloxacin, Robaxin, Solu-Medrol , Dulera, Zofran, Zosyn, Lyrica, Zoloft. PHYSICAL EXAMINATION: GENERAL: Patient is resting in bed. His speech is soft. VITAL SIGNS: Temperature is 97, pulse 77, blood pressure 106/76. NECK: Supple without any adenopathy. EXTREMITIES: There is muscle wasting in the upper extremities, left hand more so than the right. No clubbing, cyanosis, or edema. LUNGS: Decreased breath sounds, rhonchi, and some wheezing. ABDOMEN: Soft, nontender. No palpable hepatosplenomegaly. LABORATORY STUDIES AND X-RAY FINDINGS: White count 32,000, hemoglobin 11.6, MCV is 100, and platelet count is 293. Sodium is 140, potassium 3.6, chloride is 105, BUN is 14, creatinine is 0.5. Liver f unction tests are normal. ASSESSMENT: 1. Pneumonia, recurrent, possibly aspiration. 2. History of smoking abuse. 3. History of tobacco or alcohol use. 4. Oropharyngeal dysphagia per Speech Pathology. It is unclear if this is related to previous neuro logic injuries with his surgeries, mechanical impression of scarring from his surgeries in the neck a yonas and Zenker's diverticulum, which reports he has. At this time, the patient states he is not ryan g to have a feeding tube and wants to eat naturally. I explained to him that there is some risk of a spiration, but even with the feeding tube, he will have a risk of aspiration. RECOMMNEDATIONS: 1. I have ENT evaluated with regard to the question of Zenker's diverticula if that is acceptable to Speech Pathology of formal barium esophagram, he is not a candidate for endoscopy at this point in t sisi with ongoing pneumonia, leukocytosis with high risk for respiratory complications. 2. I have to stop H2 simone, start a PPI, if there is concern for reflux.
[2017-02-14] MEDS: Budesonide 0.5 MG/2 ML NEB INH SCH (07:38)
[2017-02-14] MEDS: Mometasone/Formoterol 120 PUFF INHALER INH SCH ×2 (07:47→18:42)
[2017-02-14] MEDS: Linezolid 600 MG in Premix Bag 1 BAG IVPB SCH ×2 (08:42→21:36)
[2017-02-14] MEDS: HYDROcodone/Acetaminophen 10/325 mg Tablet PO PRN ×2 (08:43→21:38)
[2017-02-14] MEDS: Methocarbamol 500 MG TAB PO SCH ×3 (08:43→21:35)
[2017-02-14] MEDS: Pregabalin 75 MG CAP PO SCH ×3 (08:43→21:35)
[2017-02-14] MEDS: Famotidine/PF 20 mg/2ml Vial SLOW IVP SCH ×2 (08:44→21:36)
--- NOTE | 2017-02-14 09:14 | RAD ---
PORTABLE AP CHEST XRAY: DATE: 02/14/17. HISTORY: On ventilator. Followup evaluation. COMPARISON: 02/13/17. FINDINGS: There is increased density overlying the region of the thoracic inlet which may be related to residua l pooling of barium within the region of either the vallecula or piriform sinuses from recent barium swallow. Dense opacification in the right lung apex is again present. There is increased interstiti al density seen bilaterally with pleural and parenchymal changes at the left lung base which may be r elated to left pleural effusion and atelectasis. Surgical clips are again seen overlying the left avery ng base. Chest is overall similar to prior study. IMPRESSION: 1. Persistent dense opacification right lung apex with scattered interstitial densities bilaterally and pleural and parenchymal changes at the left lung base which may be related to left pleural effusi on and atelectasis. Finidngs could be related to multifocal atypical infectious process, but neoplas tic process, especially in the right lung apex, could not be excluded. 2. Increased density overlying the region of the thoracic inlet which may represent residual barium within the vallecula given recent barium swallow on 02/13/17. POS: [facility]
--- NOTE | 2017-02-14 09:15 | PRG ---
DATE OF SERVICE: 02/14/2017 He failed a swallow study. He is eating breakfast this morning, declined to have a PEG placed. PHYSICAL EXAMINATION: VITAL SIGNS: His sats are 100% on 3 liters, temperature 97. CHEST: Chest revealed extensive rhonchi. CARDIAC: Sinus tachycardia. ABDOMEN: Abdomen is soft. LABORATORY DATA: White count 21,000, H&H 11 and 34, platelet 354. Electrolytes are normal. His x-ray continues to show a right upper lung mass-like lesion, bilateral infiltrates, and pleural e ffusion. The reports of his echocardiogram finally showed his EF was apparently normal. He has andrei re aortic stenosis with peak rate of 80. IMPRESSION: 1. Severe aortic stenosis. Normal ejection fraction. 2. BNP for aspiration. 3. Chronic obstructive pulmonary disease. PLAN: I will discuss with the daughter code status, because clearly he is not a candidate for any ki nd of aggressive CPR with his ongoing aspiration and dysphagia, plus additionally he has got severe a ortic stenosis. In the meantime, continue antibiotics, supportive care.
--- NOTE | 2017-02-14 12:13 | PDOC.PN ---
- Subjective Encounter Start Date: 02/14/17 Encounter Start Time: 11:30 Subjective: I FEEL BETTER. - Objective Resuscitation Status: Resuscitation Status FULL:Full Resuscitation MAR Reviewed: Yes Vital Signs & Weight: Vital Signs (12 hours) Temp Pulse Resp BP Pulse Ox 02/14/17 11:00 97.4 F L 89 18 116/77 97 02/14/17 10:50 68 20 92 L 02/14/17 08:00 98 F 66 20 02/14/17 07:47 66 20 100 02/14/17 07:39 100 02/14/17 07:38 66 20 100 02/14/17 07:31 66 20 100 02/14/17 07:00 97.3 F L 62 16 121/71 100 02/14/17 04:00 97.7 F 84 22 H 108/57 L 97 Weight Admit Weight 132 lb 1 oz Weight 129 lb 2 oz I&O: 02/13/17 02/14/17 02/15/17 06:59 06:59 06:59 Intake Total 900 2110 Balance 900 2110 Result Diagrams: 02/14/17 04:00 02/14/17 04:00 Radiology Reviewed by me: Yes Phys Exam - Physical Examination Constitutional: NAD HEENT: PERRLA, moist MMs, sclera anicteric Neck: supple, full ROM Respiratory: wheezing present COARSE Cardiovascular: RRR JOSE G Gastrointestinal: soft, non-tender, positive bowel sounds Musculoskeletal: no edema, pulses present Neurological: non-focal, moves all 4 limbs Psychiatric: normal affect, A&O x 3 Skin: no rash Dx/Plan (1) Healthcare associated bacterial pneumonia Code(s): J15.9 - UNSPECIFIED BACTERIAL PNEUMONIA Status: Acute Comment: multifocal involvement, see #1 above, Pulmonology following, Duonebs, Solumedrol (2) Sepsis Code(s): A41.9 - SEPSIS, UNSPECIFIED ORGANISM Status: Acute Comment: Suspected pulmonary source, continue Zosyn/Vanc/Levaquin pending final cx results, IVF's (3) Toxic metabolic encephalopathy Code(s): G92 - TOXIC ENCEPHALOPATHY Status: Acute Comment: Multifactorial given presentation, supportive measures (4) Dysphagia Code(s): R13.10 - DYSPHAGIA, UNSPECIFIED Status: Chronic Qualifiers: Dysphagia type: oropharyngeal phase Qualified Code(s): R13.12 - Dysphagia, oropharyngeal phase Comment: soft diet, re-evaluate swallowing function in am (5) Moderate protein-calorie malnutrition Code(s): E44.0 - MODERATE PROTEIN-CALORIE MALNUTRITION Status: Chronic Comment: Ensure TID when taking po (6) Physical deconditioning Code(s): R53.81 - OTHER MALAISE Status: Chronic Comment: PT/OT for functional assessment, fall risk precautions (7) Tobacco abuse Code(s): Z72.0 - TOBACCO USE Status: Chronic Comment: Nicotine patch 21mg TD daily - Plan cont current plan of care, continue antibiotics, respiratory therapy CONDITION IMPROVED. REFUSES PEG. HOME SOON ONCE CLEARED BY PULM. * .
[2017-02-14] MEDS: Nicotine 14 MG PATCH TOP SCH (16:40)
--- NOTE | 2017-02-14 21:31 | CON ---
DATE OF CONSULTATION: 02/14/2017 HISTORY OF PRESENT ILLNESS: Nikolai Garrido is a 66-year-old white male who was admitted on 02/09 with increased lethargy. Apparently he was admitted to [facility] on 01/01/2011 for pneumonia that was apparently methicillin-resistant Staph aureus. He was in the ICU there for approximately 2 weeks and was transferred to inpatient rehab for another 2 weeks and then discharged on 01/31/2017. Due to his extreme weakness, the daughter brought him to [facility] where she lives. He was to be assessed for inpatient rehabilitation; however, he became increasingly lethargic and unable to get out of bed. He had increased cough, fever, shortness of breath, and was admitted. He has been treated with IV antibiotics, pending cultures and echocardiogram revealed severe aortic stenosis. His physical decline began in early 2016, where he had fall, sustained a neck injury. He apparently had arm weakness, after that had difficulty with walking with a walker. With his physical decline and overall lack of ambulation, it is difficult to assess any symptoms referable to his aortic stenosis. He denies ever having any chest discomfort. He also denies ever being told that he has a heart murmur. He does have dyspnea on exertion after walking 100 feet, but this certainly could be attributed to his smoking history. He denies any peripheral edema. PAST MEDICAL HISTORY: COPD, history of ETOH abuse, history of multiple falls, cervical spine stenosis with upper extremity weakness, malnutrition, depression , hypertension possible. OPERATIONS: Status post splenectomy. He had cervical spine fusion secondary to spinal stenosis, history of rib fracture. MEDICATIONS: Prior to admission include Symbicort 2 puffs b.i.d., Famotidine 20 mg b.i.d., hydrochlorothiazide 12.5 daily, hydrocodone, Combivent inhaler 2 puffs q.i.d. p.r.n., Robaxin 500 t.i.d., Lyrica 75 t.i.d., sertraline 75 q.h.s. , and Movantik 25 daily. ALLERGIES: None. SOCIAL HISTORY: Smokes one and one half pack per day prior to his recent hospitalization. He also apparently is a very heavy drinker. REVIEW OF SYSTEMS: Twelve point review of systems otherwise unremarkable. PHYSICAL EXAMINATION: VITAL SIGNS: 116/78, pulse of 90. HEENT: PERRL. NECK: Supple. LUNGS: Chest reveals rhonchi. CARDIAC: S1 and S2 are normal, without any S3 or S4. There is a 2/6 systolic ejection murmur heard throughout the precordium. ABDOMEN: Normal bowel sounds, without tenderness, organomegaly. EXTREMITIES: Revealed no clubbing, cyanosis or edema. NEUROLOGIC: Grossly intact. SKIN: Warm and dry. LABORATORY DATA: EKG reveals sinus tachycardia, nonspecific T-wave changes. He does have a 12-beat run of ventricular tachycardia with rate in the 180s. Hemoglobin 11.6, hematocrit 34.7, white count 21,100, platelets 354,000. Sodium 137, potassium 3.7, chloride 102, carbon dioxide 30, BUN 27, creatinine 0.57. BNP 676.8. Troponin I's were normal. Echocardiogram revealed ejection fraction of 50-55% with mild mitral regurgitation, and severe aortic stenosis with a peak gradient of 80 mm, mean gradient of 47 mm with an aortic valve area of 0.8 cm2. IMPRESSION: 1. Severe aortic stenosis. It is difficult to tell if he is symptomatic with his multiple other medical problems. 2. Methicillin-resistant Staphylococcus aureus pneumonia recently. 3. Aspiration seen on swallowing test, patient declines a PEG tube. 4. Hypertension. 5. Smoker. 6. Chronic obstructive pulmonary disease. 7. History of ETOH abuse. 8. History of multiple falls. 9. Nonsustained ventricular tachycardia. PLAN: At the present time, I do not feel that Mr. Garrido is a candidate for any cardiac evaluation. He will need to have a clearing of his pneumonia, be more ambulatory. I will continue to follow the patient with you. AGATHA
--- NOTE | 2017-02-15 00:02 | PRG ---
DATE OF SERVICE: 02/14/2017 SUBJECTIVE: Mr. Garrido is more awake today. He denies coughing or choking when he swallows. He h as decided to go ahead and eat despite the risk of aspiration. I have talked to the speech pathologist today and she states that all his aspiration was coming on re flux material. She was concerned there was significant amount doing a formal esophagram would be pre tty risky for him. I confirmed with the patient he has decided he is not going to have a PEG tube pl aced. Other developments were that he has been found to have critical aortic stenosis. OBJECTIVE: VITAL SIGNS: Temperature 97, pulse 89, respirations 20, O2 sat 99%, blood pressure 150/68. LUNGS: Rhonchi. CARDIAC: Sinus tachycardia. IMAGING: Chest x-ray shows right upper lung infiltrate, possible mass-like area. LABORATORY STUDIES: White count is 21,000, hemoglobin is 11, platelet count 354. The patient has s metabolic profile normal with BUN and creatinine of 27 and 0.57. ASSESSMENT: 1. Bilateral lobar pneumonia, possible aspiration, still quite a bit of wheezing. 2. Echocardiogram today showed critical aortic stenosis. 3. Concern for aspiration with poor performance on modified barium swallow. 4. The patient states he is not going to have a PEG tube as long as he can swallow on his own. RECOMMENDATIONS: 1. I think as his respiratory status improves, it may be reasonable to consider an EGD to make sure there is not some type of stricture narrowing the distal esophagus. The speech pathologist noted barbara t most of his aspiration would occur after he actually would regurgitate. The patient states he had been diagnosed a Zenker's diverticulum but that reportedly was about 30 years ago. I am not sure barbara t is pertinent at this time. In any event, further evaluation of his upper GI tract to be reasonable ; however, at this point in time, he is not a good candidate for an endoscopy with pneumonia and andrei re aortic stenosis. We will continue to follow along with you and if this improves, we can consider endoscopy or we can consider formal swallow test if his respiratory status strengthen. 2. As far as the abnormalities in chest x-ray and the concern for possible underlying neoplasia, we would defer that to Pulmonary.
[2017-02-15] MEDS: Piperacillin/Tazobactam 3.375 GM in Sodium Chloride 0.9% 100 ML IVPB SCH ×2 (00:52→06:45)
[2017-02-15 05:15] LABS: Anion Gap 10 mmol/L (10-20); BUN (Urea Nitrogen) 14 mg/dL (8.4-25.7); Calc. Creatinine Clearance 112 mL/min (70-130); Calcium 8.7 mg/dL (7.8-10.44); Carbon Dioxide 29 mmol/L (23-31); Chloride 102 mmol/L (98-107); Estimated GFR-MDRD Greater than 90; Glucose 147 mg/dL (80-115); Potassium 3.9 mmol/L (3.5-5.1); Sodium 137 mmol/L (136-145)
[2017-02-15 05:23] LABS: Band 4 % (5-11); Hemoglobin 12.1 g/dL (14.0-18.0); Lymphocytes 4 % (21-51); MDiff Complete? YES; Mean Corpuscular HGB CONC 32.4 g/dL (32.0-36.0); Mean Corpuscular Hemoglobin 32.4 pg (27.0-31.0); Mean Platelet Volume 7.5 fL (7.4-10.4); Monocytes 8 % (0-10); Neutrophil 82 % (42-75); PLT Morphology Comment Appears Adequate; Platelet Count 379 thou/uL (130-400); RBC Distribution Width 12.7 % (11.5-14.5); RBC Morphology Normal; Reactive Lymphocytes 2 % (0-10); Red Blood Cell (RBC) Count 3.74 mill/uL (4.70-6.10); White Blood Cell (WBC) Count 19.2 thou/uL (4.8-10.8)
[2017-02-15] MEDS: Mometasone/Formoterol 120 PUFF INHALER INH SCH ×2 (06:52→19:46)
[2017-02-15] MEDS: Linezolid 600 MG in Premix Bag 1 BAG IVPB SCH ×2 (08:49→22:56)
[2017-02-15] MEDS: Famotidine/PF 20 mg/2ml Vial SLOW IVP SCH (08:49)
[2017-02-15] MEDS: Pregabalin 75 MG CAP PO SCH ×3 (08:50→20:45)
[2017-02-15] MEDS: Methocarbamol 500 MG TAB PO SCH ×3 (08:50→20:46)
--- NOTE | 2017-02-15 10:24 | PDOC.PN ---
- Subjective Encounter Start Date: 02/15/17 Encounter Start Time: 10:23 Subjective: PLEASANT, DENIES NEW PROBLEMS, WANTS TO WALK WITH WALKER - Objective Resuscitation Status: Resuscitation Status FULL:Full Resuscitation MAR Reviewed: Yes Vital Signs & Weight: Vital Signs (12 hours) Temp Pulse Resp BP BP Pulse Ox 02/15/17 09:29 97.7 F 93 22 H 119/71 93 L 02/15/17 08:26 97.7 F 93 22 H 94 L 02/15/17 06:52 59 L 16 02/15/17 06:45 100 02/15/17 06:44 59 L 16 02/15/17 04:00 97.9 F 62 18 111/68 97 02/15/17 00:00 97.9 F 79 20 122/77 99 Weight Admit Weight 132 lb 1 oz Weight 129 lb 2 oz I&O: 02/14/17 02/15/17 02/16/17 06:59 06:59 06:59 Intake Total 2110 2540 480 Output Total 1000 Balance 2110 1540 480 Result Diagrams: 02/15/17 04:22 02/15/17 04:21 Phys Exam - Physical Examination Constitutional: NAD HEENT: PERRLA, moist MMs, sclera anicteric Neck: supple, full ROM RHONCHI Cardiovascular: RRR Gastrointestinal: soft, non-tender, positive bowel sounds Musculoskeletal: no edema Neurological: non-focal, moves all 4 limbs Psychiatric: normal affect, A&O x 3 Dx/Plan (1) Healthcare associated bacterial pneumonia Code(s): J15.9 - UNSPECIFIED BACTERIAL PNEUMONIA Status: Acute Comment: multifocal involvement, see #1 above, Pulmonology following, [place] minayaumedrol (2) Sepsis Code(s): A41.9 - SEPSIS, UNSPECIFIED ORGANISM Status: Acute Comment: Suspected pulmonary source, continue Zosyn/Vanc/Levaquin pending final cx results, IVF's (3) Toxic metabolic encephalopathy Code(s): G92 - TOXIC ENCEPHALOPATHY Status: Resolved Comment: Multifactorial given presentation, supportive measures (4) Dysphagia Code(s): R13.10 - DYSPHAGIA, UNSPECIFIED Status: Chronic Qualifiers: Dysphagia type: oropharyngeal phase Qualified Code(s): R13.12 - Dysphagia, oropharyngeal phase Comment: soft diet, re-evaluate swallowing function in am (5) Moderate protein-calorie malnutrition Code(s): E44.0 - MODERATE PROTEIN-CALORIE MALNUTRITION Status: Chronic Comment: Ensure TID when taking po (6) Physical deconditioning Code(s): R53.81 - OTHER MALAISE Status: Chronic Comment: PT/OT for functional assessment, fall risk precautions (7) Tobacco abuse Code(s): Z72.0 - TOBACCO USE Status: Chronic Comment: Nicotine patch 21mg TD daily - Plan MRSA PNA--ZYVOX -: APPRECIATE INPUT FROM CARDS AND GI. * .
--- NOTE | 2017-02-15 14:47 | PRG ---
DATE OF SERVICE: 02/15/2017 SUBJECTIVE: This morning, he is awake, alert, responsive, in no distress. OBJECTIVE: VITAL SIGNS: Blood pressure 190/73, sats 92% on 2 liters, respirations 20, temperature 97. I's & O' s have been good. CHEST: Reveals decreased breath sounds, no wheezing. CARDIAC: Normal S1, S2, no gallops. ABDOMEN: Soft, no masses. LABORATORY DATA: White count 19,000, H&H is 12 and 37, platelet count normal. Electrolytes normal. IMPRESSION: 1. Multiple medical problems. 2. Respiratory failure. 3. Dysphagia. 4. Staph pneumonia. 5. Severe aortic stenosis. 6. Encephalopathy. PLAN: From the Pulmonary standpoint of view, can be transferred out of the MICU. Continue antibioti cs, nebulizer treatments, supportive care. We will follow.
--- NOTE | 2017-02-15 15:13 | PRG ---
DATE OF SERVICE: 02/15/2017 SUBJECTIVE: Mr. Garrido is sitting up and eating spaghetti. He is little bit more awake today. Ta lking to him about swallowing over time, he states for years intermittently he feels food sticks in t he throat or upper chest region, intermittently regurgitates that history. Interestingly, he says he does not have a lot of pneumonia problems. He denies any shortness of breath at this time, but marcos blackwell has coughing and has little bit of wheezing. MEDICATIONS: He is on Pepcid, DuoNeb, levofloxacin, inhalers, Nicoderm patch, prednisone, sertraline , Lyrica. OBJECTIVE: VITAL SIGNS: Temperature 97, pulse 93, respirations 16-20, oxygen saturation 93% on 2 liters, blood pressure 138/74. HEENT: He is very cachectic. NECK: Without masses or lesions. LUNGS: Notable for rhonchi bilaterally upper and lower bolanos. CARDIAC: Has 3/6 systolic ejection murmur. ABDOMEN: Nontender. LABORATORY STUDIES: White count 19,000, hemoglobin 12, platelet count 379. ASSESSMENT: 1. Oropharyngeal dysphagia, etiology is unknown, but it has been present for a long time it seems in talking with him. The speech pathologist described regurgitation when he tries to swallow things, a nd one wonders if there is a stricture lower down, but he does not classic symptoms of a bolus obstru ction or symptoms associated with Schatzki's ring or stricture. He denies any recent endoscopies and states that he was told that he has Zenker's diverticulum about 20 years ago. That would be a littl e bit atypical for a person of his age at that time. He has had symptoms of neck trauma in the past, but there is no evidence of hardware in his neck on imaging studies. He does also has some muscle w asting in the left hand, which he states was related to that injury. 2. Aspiration pneumonia. 3. Severe aortic stenosis. RECOMMENDATIONS: There may be something to be done for him in terms of his dysphagia, especially of the Zenker diverticulum, but we were really not able to make a diagnosis. I do that will be done wit h contrast studies or endoscopy; however, present speech pathologist study will be pretty high risk a spirate contrast material with x-ray study and although that may be tolerable in normal state when he has got bilobar pneumonia, this may not be the best time for him to aspirate any contrast material. Additionally, I do not think he is a good candidate for endoscopy right now. He is still getting ov er pneumonia with some respiratory difficulty and findings on exam as well as some oxygen dependence and tachypnea. Putting all that into place with his severe aortic stenosis, I think he is at a littl e prohibitive risk for elective endoscopy at this time. I explained to the patient the ideal situati on would be for him to be Dobbhoff feeding at this time, let his pneumonia clear up, then we either p erform endoscopy or an upper GI to further delineate the anatomy to help him decide what to do. PEG tube would not be unreasonable for a time either, although he is not willing to stop eating, so there is no reason to a PEG tube in. At this time, we will continue to follow along without much less to offer. He is reclined a lot and has a lot of regurgitation. I would stop his Pepcid and put him on Protonix.
[2017-02-15] MEDS: Nicotine 14 MG PATCH TOP SCH (15:40)
[2017-02-15] MEDS: HYDROcodone/Acetaminophen 10/325 mg Tablet PO PRN (20:46)
[2017-02-16] MEDS: HYDROcodone/Acetaminophen 10/325 mg Tablet PO PRN ×4 (02:59→22:19)
[2017-02-16 05:33] LABS: Anion Gap 8 mmol/L (10-20); BUN (Urea Nitrogen) 13 mg/dL (8.4-25.7); Calc. Creatinine Clearance 114 mL/min (70-130); Calcium 8.5 mg/dL (7.8-10.44); Carbon Dioxide 29 mmol/L (23-31); Chloride 100 mmol/L (98-107); Estimated GFR-MDRD Greater than 90; Glucose 96 mg/dL (80-115); Potassium 3.4 mmol/L (3.5-5.1); Sodium 134 mmol/L (136-145)
[2017-02-16 06:06] LABS: Band 2 % (5-11); Eosinophils 1 % (0-10); Hemoglobin 13.5 g/dL (14.0-18.0); Lymphocytes 14 % (21-51); MDiff Complete? YES; Macrocytosis SLIGHT = 6-15 cells (100X) (0-5/hpf); Mean Corpuscular HGB CONC 32.6 g/dL (32.0-36.0); Mean Corpuscular Hemoglobin 32.6 pg (27.0-31.0); Mean Platelet Volume 7.8 fL (7.4-10.4); Monocytes 4 % (0-10); Neutrophil 76 % (42-75); PLT Morphology Comment Appears Adequate; Platelet Count 380 thou/uL (130-400); RBC Distribution Width 12.9 % (11.5-14.5); Reactive Lymphocytes 3 % (0-10); Red Blood Cell (RBC) Count 4.13 mill/uL (4.70-6.10); White Blood Cell (WBC) Count 33.5 thou/uL (4.8-10.8)
[2017-02-16] MEDS: Methocarbamol 500 MG TAB PO SCH ×3 (08:52→21:01)
[2017-02-16] MEDS: Pregabalin 75 MG CAP PO SCH ×3 (08:52→21:00)
[2017-02-16] MEDS: predniSONE 20 MG TAB PO SCH (08:53)
[2017-02-16] MEDS: Pantoprazole 40 MG VIAL IVP SCH (08:53)
[2017-02-16] MEDS: Linezolid 600 MG in Premix Bag 1 BAG IVPB SCH (09:05)
[2017-02-16] MEDS: Mometasone/Formoterol 120 PUFF INHALER INH SCH ×2 (11:56→20:12)
--- NOTE | 2017-02-16 14:00 | CT ---
CT CHEST WITH CONTRAST: Multiple axial tomograms were obtained through the chest with IV enhancement. HISTORY: Pneumonia. FINDINGS: Dense consolidation in the right upper lobe. Air bronchograms are seen in the right upper lobe. Moderate-sized bilateral pleural effusions. Bibasilar infiltrate and atelectasis. Mediastinum shows nonspecific adenopathy with numerous mildly enlarged lymph nodes measuring up to 1.5 cm. There is a right hilar mass or adenopathy which measures up to 2.5 cm in the coronal plane. There are other en larged right hilar lymph nodes. There are also some mildly enlarged left hilar lymph nodes, but not as prominent as the adenopathy seen on the right. IMPRESSION: 1. There is dense consolidation and/or atelectasis in the right upper lobe. Diffuse air bronchogram s are seen in this densely atelectatic right upper lobe and there is shift of the mediastinum to the right in the upper chest consistent with volume loss. There is mediastinal and hilar adenopathy with a prominent right hilar lymph node seen. 2. There bilateral pleural effusions and bibasilar atelectasis and infiltrates. POS: [facility]
--- NOTE | 2017-02-16 16:50 | PRG ---
DATE OF SERVICE: 02/16/2017 SUBJECTIVE: Mr. Nikolai Garrido is weak. He is having difficulty breathing. No cough. OBJECTIVE: VITAL SIGNS: His overall vital signs are stable with sat of 96%, much improved on 3 liters, respirat ions 16, temperature 98, blood pressure 104/71. It is unclear whether he is ambulating. CHEST: Decreased breath sounds, no wheezing. CARDIAC: Normal S1, S2. No gallops. ABDOMEN: Soft, no masses. LABORATORY DATA: White count is 33,000, elevated; platelet count 380, 76 segs, 2 bands. IMAGING: His last chest x-ray had showed right upper lung cavitary infiltrate and left lower lung in filtrate. IMPRESSION: Bilateral bronchopneumonia, recurrent aspiration, severe aortic stenosis, and severe dec onditioning. PLAN: CT of his chest is being ordered today. Continue PT and supportive care. Antibiotics. We will follow.
[2017-02-16] MEDS: Nicotine 14 MG PATCH TOP SCH (17:05)
[2017-02-16] MEDS ORDERED: ISOVUE-370 76%-LOCM 1 ML ONE (17:47)
--- NOTE | 2017-02-16 20:55 | PDOC.PN ---
- Subjective Encounter Start Date: 02/16/17 Encounter Start Time: 13:00 Patient seen and examined. Cough - productive/wheezing +. No overnight events - Objective Resuscitation Status: Resuscitation Status FULL:Full Resuscitation MAR Reviewed: Yes Vital Signs & Weight: Vital Signs (12 hours) Temp Pulse Resp BP Pulse Ox 02/16/17 20:15 99 02/16/17 20:13 99 02/16/17 20:12 99 02/16/17 16:44 97.6 F 91 20 102/69 96 02/16/17 15:02 87 16 02/16/17 12:49 98.3 F 88 22 H 112/77 92 L 02/16/17 11:56 68 16 02/16/17 11:44 89 16 Weight Admit Weight 132 lb 1 oz Weight 126 lb 8 oz I&O: 02/15/17 02/16/17 02/17/17 06:59 06:59 06:59 Intake Total 2540 1870 1260 Output Total 1000 1740 745 Balance 1540 130 515 Result Diagrams: 02/17/17 04:47 02/17/17 04:47 Phys Exam - Physical Examination Constitutional: NAD Respiratory: no wheezing B/L rales R>L /right sided rhonchi Cardiovascular: RRR, no rub Gastrointestinal: soft, non-tender, positive bowel sounds Dx/Plan - Plan DVT proph w/SCDs IMPRESSION: 1. Sepsis with acute organ dysfunction/HCAP 2. Oropharyngeal dysphagia - Refuses PEG 3. Toxic Metabolic Encephalopathy 4. Moderate PEM 5. Severe Aortic stenosis/COPD/Tob dep/HTN/Recent MRSA pneumonia/Physical deconditioning PLAN: * Cont Atbx * GI/Pulm following * CT chest today * AM labs * Cont other meds as below Review of Systems - Review of Systems Respiratory: negative: Cough, Dry, Shortness of Breath, Hemoptysis, SOB with Excertion, Pleuritic Pain, Sputum, Wheezing Cardiovascular: negative: Chest Pain, Palpitations, Orthopnea, Paroxysmal Noc. Dyspnea, Edema, Light Headedness, Other - Medications/Allergies Allergies/Adverse Reactions: Allergies Allergy/AdvReac Type Severity Reaction Status Date / Time No Known Drug Allergies Allergy Verified 02/09/17 21:52 Medications: Current Medications Acetaminophen (Tylenol) 1,000 mg PO Q6H PRN PRN Reason: Headache/Fever or Mild Pain Hydrocodone Bitart/Acetaminophen ([place] 10/325) 1 tab PO Q6H PRN PRN Reason: Moderate Pain (4-6) Last Admin: 02/16/17 16:12 Dose: 1 tab Albuterol/Ipratropium (Duoneb) 3 ml NEB [id number] SCH Last Admin: 02/16/17 20:13 Dose: 3 ml Albuterol/Ipratropium (Duoneb) 3 ml NEB Q2H PRN PRN Reason: .SHORTNESS OF BREATH Last Admin: 02/12/17 03:24 Dose: 3 ml Benzonatate (Tessalon) 200 mg PO Q6H PRN PRN Reason: Cough Doxycycline Hyclate (Vibramycin) 100 mg PO BID [facility] Guaifenesin (Robitussin Sf) 200 mg PO Q4H PRN PRN Reason: Cough Haloperidol Lactate (Haldol) 2 mg IM Q8H PRN PRN Reason: Agitation Last Admin: 02/13/17 23:06 Dose: 2 mg Levofloxacin (Levaquin) 500 mg PO 0600 [facility] Stop: 02/20/17 06:01 Last Admin: 02/16/17 06:05 Dose: 500 mg Lorazepam (Ativan) 2 mg SLOW IVP Q4H PRN PRN Reason: Anxiety/Agitation Last Admin: 02/13/17 20:25 Dose: 2 mg Methocarbamol (Robaxin) 500 mg PO TID [facility] Last Admin: 02/16/17 15:36 Dose: 500 mg Mometasone Furoate/Formoterol Fumar (Dulera 200 Mcg/5 Mcg Inhaler) 2 puff INH BID-RT [facility] Last Admin: 02/16/17 20:12 Dose: 2 puff Nicotine (Nicoderm Patch) 14 mg TOP Q24HR [facility] Last Admin: 02/16/17 17:05 Dose: 14 mg Ondansetron HCl (Zofran Odt) 4 mg PO Q6H PRN PRN Reason: Nausea/Vomiting Ondansetron HCl (Zofran) 4 mg IVP Q6H PRN PRN Reason: Nausea/Vomiting Pantoprazole Sodium (Protonix) 40 mg IVP DAILY [facility] Last Admin: 02/16/17 08:53 Dose: 40 mg Prednisone (Prednisone) 20 mg PO QAM-[facility] Last Admin: 02/16/17 08:53 Dose: 20 mg Pregabalin (Lyrica) 75 mg PO TID [facility] Last Admin: 02/16/17 15:36 Dose: 75 mg Sertraline HCl (Zoloft) 75 mg PO HS [facility] Last Admin: 02/15/17 20:45 Dose: 75 mg
[2017-02-16] MEDS: Doxycycline 100 MG CAP PO SCH (20:59)
[2017-02-17 05:40] LABS: Anion Gap 9 mmol/L (10-20); BUN (Urea Nitrogen) 13 mg/dL (8.4-25.7); Calc. Creatinine Clearance 116 mL/min (70-130); Calcium 8.5 mg/dL (7.8-10.44); Carbon Dioxide 29 mmol/L (23-31); Chloride 102 mmol/L (98-107); Estimated GFR-MDRD Greater than 90; Glucose 94 mg/dL (80-115); Magnesium 2.1 mg/dL (1.6-2.6); Potassium 3.4 mmol/L (3.5-5.1); Sodium 137 mmol/L (136-145)
[2017-02-17 05:56] LABS: Eosinophils 2 % (0-10); Hemoglobin 12.4 g/dL (14.0-18.0); Lymphocytes 30 % (21-51); MDiff Complete? YES; Mean Corpuscular HGB CONC 32.5 g/dL (32.0-36.0); Mean Corpuscular Hemoglobin 32.8 pg (27.0-31.0); Mean Platelet Volume 7.5 fL (7.4-10.4); Monocytes 3 % (0-10); Neutrophil 65 % (42-75); PLT Morphology Comment Appears Adequate; Platelet Count 401 thou/uL (130-400); RBC Distribution Width 13.2 % (11.5-14.5); Red Blood Cell (RBC) Count 3.78 mill/uL (4.70-6.10); White Blood Cell (WBC) Count 19.8 thou/uL (4.8-10.8)
--- NOTE | 2017-02-17 06:33 | PRG ---
DATE OF SERVICE: 02/16/2017 SUBJECTIVE: Mr. Garrido is still pretty insist on eating, still coughing, quite a bit after eating. States he feels no difference in terms of his shortness breath. OBJECTIVE: VITAL SIGNS: Temperature 97, pulse 91, respirations 20, blood pressure 102/69. GENERAL: He is frail, cachectic, coughing. LABORATORY DATA: White count 33,000 today, hemoglobin is 13, platelet count 380. Sodium 134, potass ium 3.4, BUN and creatinine are 13 and 0.52. ASSESSMENT: Pneumonia, continues on Levaquin p.o. and Vibramycin p.o., is on inhaler, some Protonix , prednisone. CAT scan today that is concerning for atelectasis in the right upper lobe. Bronchogra ms in the right upper lobe, shift of mediastinum to the right in the upper chest, some mediastinal hi lar adenopathy as well. RECOMMENDATIONS: We will defer to Pulmonary in regard to the abnormal lung findings whether ne eds to be considered or not. With regard to his dysphagia, no obvious obstruction or masses were see n in the esophagus. This appears to be an oropharyngeal process. At this time, the patient still re fuses PEG tube placement and with his aspiration pneumonia and severe aortic stenosis, he is not pres ently a candidate for endoscopy. We will continue to follow.
[2017-02-17] MEDS: predniSONE 20 MG TAB PO SCH (08:44)
[2017-02-17] MEDS: Mometasone/Formoterol 120 PUFF INHALER INH SCH ×2 (09:06→20:10)
[2017-02-17] MEDS: Pregabalin 75 MG CAP PO SCH ×3 (09:58→21:07)
[2017-02-17] MEDS: Doxycycline 100 MG CAP PO SCH ×2 (09:58→21:06)
[2017-02-17] MEDS: Pantoprazole 40 MG VIAL IVP SCH (09:59)
[2017-02-17] MEDS: Methocarbamol 500 MG TAB PO SCH ×3 (09:59→21:06)
--- NOTE | 2017-02-17 10:52 | PRG ---
DATE OF SERVICE: 02/17/2017 OBJECTIVE: VITAL SIGNS: Sats are 97% on 2 liters, respirations 16, temperature 97, blood pressure 120/82. He i s complaining of his diet this morning. Cough, nonproductive. CHEST: Extensive rhonchi. CARDIAC: Normal S1, S2. No gallops. ABDOMEN: Soft. No masses. LABORATORY DATA: White count 19,000, H&H 12 and 38, platelet count 141,000. A CT of his chest yesterday shows bilateral pleural effusion, hilar adenopathy on the right side and atelectatic right upper lung which appears to be there for an extended period of time. IMPRESSION: 1. Aortic stenosis. 2. Aspiration pneumonia with failure to follow her n.p.o. 3. Chronic obstructive pulmonary disease. 4. Severe deconditioning. PLAN: He can be discharged home on antibiotics, prednisone. He will follow up with his primary care physician. At some point, he may need a diagnostic bronchoscopy. Though his main concern is ongoing severe dysphagia and aspiration, it appeared it is recurrent aspir ation pneumonia. Prognosis is grave.
[2017-02-17 12:30] VITALS: BMI 18.3
--- NOTE | 2017-02-17 16:52 | PDOC.PN ---
- Subjective Encounter Start Date: 02/17/17 Encounter Start Time: 11:00 Patient seen and examined. Cough +. No overnight events - Objective Resuscitation Status: Resuscitation Status FULL:Full Resuscitation MAR Reviewed: Yes Vital Signs & Weight: Vital Signs (12 hours) Temp Pulse Resp BP Pulse Ox 02/17/17 15:44 95 16 02/17/17 13:00 109 H 19 116/85 94 L 02/17/17 09:06 92 20 02/17/17 08:59 99 02/17/17 08:57 92 20 02/17/17 08:13 97.7 F 87 16 95 02/17/17 07:30 97.7 F 87 16 122/82 95 02/17/17 05:26 93 L Weight Admit Weight 132 lb 1 oz Weight 127 lb 8 oz I&O: 02/16/17 02/17/17 02/18/17 06:59 06:59 06:59 Intake Total 1870 1960 Output Total 1740 1420 Balance 130 540 Result Diagrams: 02/17/17 04:47 02/17/17 04:47 EKG Reviewed by me: Yes (Tele SR) Phys Exam - Physical Examination Constitutional: NAD Respiratory: no wheezing B/L rhonchi/rales + R>L Cardiovascular: RRR, no rub Gastrointestinal: soft, positive bowel sounds Musculoskeletal: no edema Neurological: moves all 4 limbs Dx/Plan - Plan DVT proph w/SCDs IMPRESSION: 1. Sepsis with acute organ dysfunction/HCAP - on Atbx 2. Oropharyngeal dysphagia - Refuses PEG 3. Toxic Metabolic Encephalopathy - improved 4. Moderate PEM 5. Severe Aortic stenosis/COPD/Tob dep/HTN/Recent MRSA pneumonia/Physical deconditioning PLAN: * Cont Atbx * GI/Pulm/Cardio following * Needs diagnostic bronch as outpt per Pulm * DC home with HHC if ok with Cardio * Cont other meds as below * CM consult for HHC for PT/ST/group home * Consult Palliative care Review of Systems - Review of Systems Cardiovascular: negative: Chest Pain, Palpitations, Orthopnea, Paroxysmal Noc. Dyspnea, Edema, Light Headedness Gastrointestinal: negative: Nausea, Vomiting, Abdominal Pain, Diarrhea, Constipation, Melena, Hematochezia - Medications/Allergies Allergies/Adverse Reactions: Allergies Allergy/AdvReac Type Severity Reaction Status Date / Time No Known Drug Allergies Allergy Verified 02/09/17 21:52 Medications: Current Medications Acetaminophen (Tylenol) 1,000 mg PO Q6H PRN PRN Reason: Headache/Fever or Mild Pain Hydrocodone Bitart/Acetaminophen ([place] 10/325) 1 tab PO Q6H PRN PRN Reason: Moderate Pain (4-6) Last Admin: 02/16/17 22:19 Dose: 1 tab Albuterol/Ipratropium (Duoneb) 3 ml NEB [id number] SCH Last Admin: 02/17/17 15:44 Dose: 3 ml Albuterol/Ipratropium (Duoneb) 3 ml NEB Q2H PRN PRN Reason: .SHORTNESS OF BREATH Last Admin: 02/12/17 03:24 Dose: 3 ml Benzonatate (Tessalon) 200 mg PO Q6H PRN PRN Reason: Cough Doxycycline Hyclate (Vibramycin) 100 mg PO BID [facility] Last Admin: 02/17/17 09:58 Dose: 100 mg Guaifenesin (Robitussin Sf) 200 mg PO Q4H PRN PRN Reason: Cough Last Admin: 02/17/17 10:05 Dose: 200 mg Levofloxacin (Levaquin) 500 mg PO 0600 [facility] Stop: 02/20/17 06:01 Last Admin: 02/17/17 05:40 Dose: 500 mg Lorazepam (Ativan) 2 mg SLOW IVP Q4H PRN PRN Reason: Anxiety/Agitation Last Admin: 02/13/17 20:25 Dose: 2 mg Methocarbamol (Robaxin) 500 mg PO TID [facility] Last Admin: 02/17/17 13:30 Dose: 500 mg Mometasone Furoate/Formoterol Fumar (Dulera 200 Mcg/5 Mcg Inhaler) 2 puff INH BID-RT [facility] Last Admin: 02/17/17 09:06 Dose: 2 puff Nicotine (Nicoderm Patch) 14 mg TOP Q24HR [facility] Last Admin: 02/16/17 17:05 Dose: 14 mg Ondansetron HCl (Zofran Odt) 4 mg PO Q6H PRN PRN Reason: Nausea/Vomiting Ondansetron HCl (Zofran) 4 mg IVP Q6H PRN PRN Reason: Nausea/Vomiting Pantoprazole Sodium (Protonix) 40 mg IVP DAILY [facility] Last Admin: 02/17/17 09:59 Dose: 40 mg Potassium Chloride (Klor-Con) 20 meq PO BID-[facility] Stop: 02/17/17 17:01 Prednisone (Prednisone) 20 mg PO QAM-[facility] Last Admin: 02/17/17 08:44 Dose: 20 mg Pregabalin (Lyrica) 75 mg PO TID [facility] Last Admin: 02/17/17 13:30 Dose: 75 mg Sertraline HCl (Zoloft) 75 mg PO HS [facility] Last Admin: 02/16/17 20:59 Dose: 75 mg
[2017-02-17] MEDS: Nicotine 14 MG PATCH TOP SCH (17:07)
[2017-02-17] MEDS: HYDROcodone/Acetaminophen 10/325 mg Tablet PO PRN (21:10)
[2017-02-18 05:13] LABS: #Basophils 0.1 thou/uL (0.0-0.2); #Eosinphils 0.3 thou/uL (0.0-0.7); #Monocytes 1.5 thou/uL (0.11-0.59); #Neutrophils 12.7 thou/uL (1.40-6.50); %Basophils 0.6 % (0.0-1.0); %Eosinophils 1.4 % (0.0-10.0); %Lymphocytes 21.3 % (21.0-51.0); %Monocytes 8.1 % (0.0-10.0); %Neutrophils 68.6 % (42.0-75.0); Hemoglobin 13.3 g/dL (14.0-18.0); Mean Corpuscular HGB CONC 32.2 g/dL (32.0-36.0); Mean Corpuscular Hemoglobin 32.6 pg (27.0-31.0); Mean Platelet Volume 7.4 fL (7.4-10.4); Platelet Count 410 thou/uL (130-400); RBC Distribution Width 13.5 % (11.5-14.5); Red Blood Cell (RBC) Count 4.09 mill/uL (4.70-6.10); White Blood Cell (WBC) Count 18.6 thou/uL (4.8-10.8)
[2017-02-18 05:26] LABS: Anion Gap 11 mmol/L (10-20); BUN (Urea Nitrogen) 15 mg/dL (8.4-25.7); Calc. Creatinine Clearance 113 mL/min (70-130); Calcium 8.6 mg/dL (7.8-10.44); Carbon Dioxide 24 mmol/L (23-31); Chloride 103 mmol/L (98-107); Estimated GFR-MDRD Greater than 90; Glucose 97 mg/dL (80-115); Potassium 4.5 mmol/L (3.5-5.1); Sodium 133 mmol/L (136-145)
[2017-02-18] MEDS: Mometasone/Formoterol 120 PUFF INHALER INH SCH ×2 (07:44→19:27)
[2017-02-18] MEDS: Pantoprazole 40 MG VIAL IVP SCH (08:59)
[2017-02-18] MEDS: Doxycycline 100 MG CAP PO SCH ×2 (09:00→20:27)
[2017-02-18] MEDS: Pregabalin 75 MG CAP PO SCH ×3 (09:00→20:28)
[2017-02-18] MEDS: Methocarbamol 500 MG TAB PO SCH ×3 (09:00→20:28)
[2017-02-18] MEDS: predniSONE 20 MG TAB PO SCH (09:00)
--- NOTE | 2017-02-18 09:24 | PRG ---
DATE OF SERVICE: 02/18/2017 PHYSICAL EXAMINATION: VITAL SIGNS: Sats are 97% on 2 liters, his sats are 88% room air. He is short of breath. He is cou ghing some relatively yellow sputum. Temperature 97, blood pressure 120/75. His I's and O's have be en 1967 in, 142 out. CHEST: Chest reveals bilateral rhonchi and crackles. CARDIAC: Normal S1, S2. CAT scan shows bilateral pleural effusions, right upper lung. He had [id number] density, leidy r adenopathy. LABORATORY: White count 18,000, H&H 13 and 41, platelet count 10, electrolytes are normal. IMPRESSION: 1. Multiorgan failure. 2. Pneumonia. 3. Aspiration. 4. Encephalopathy. 5. Dysphagia. 6. Possibly lung mass. 7. Severe aortic stenosis. PLAN: Discussed with the patient at length. He can be discharged home on present antibiotic, follow up with Dr. Brush in a month. At that time we will reassess the situation. Cardiology will reassess the aortic stenosis. He will consider putting a PEG if he continues to have dysphagia. Long-term prognosis is grave. He required a nebulizer several times a day, has required a tapering dose of prednisone for 2 weeks, antibiotics for 10 days, low flow O2 at 2 liters a minute. To note, he sats are 80% on room air. He should qualify.
[2017-02-18] MEDS: Nicotine 14 MG PATCH TOP SCH (16:09)
[2017-02-18] MEDS: HYDROcodone/Acetaminophen 10/325 mg Tablet PO PRN (16:15)
--- NOTE | 2017-02-18 21:06 | PDOC.PN ---
- Subjective Encounter Start Date: 02/18/17 Encounter Start Time: 15:00 Patient seen and examined. No new complaints. No overnight events - Objective Resuscitation Status: Resuscitation Status FULL:Full Resuscitation MAR Reviewed: Yes Vital Signs & Weight: Vital Signs (12 hours) Temp Pulse Resp BP Pulse Ox 02/18/17 19:26 88 16 95 02/18/17 16:06 98.8 F 99 18 119/74 99 02/18/17 14:25 75 16 94 L 02/18/17 12:24 108 H 18 113/77 95 02/18/17 11:08 88 16 95 Weight Admit Weight 132 lb 1 oz Weight 126 lb 14.4 oz I&O: 02/17/17 02/18/17 02/19/17 06:59 06:59 06:59 Intake Total 1960 1455 1220 Output Total 1420 2120 1530 Balance 540 -665 -310 Result Diagrams: 02/19/17 06:11 02/19/17 06:11 EKG Reviewed by me: Yes (Tele SR) Phys Exam - Physical Examination Constitutional: NAD Respiratory: no wheezing B/L rales R>L Cardiovascular: RRR, no rub Gastrointestinal: soft, non-tender Musculoskeletal: no edema Dx/Plan - Plan DVT proph w/SCDs IMPRESSION: 1. Sepsis with acute organ dysfunction/HCAP - on Atbx 2. Oropharyngeal dysphagia - Refuses PEG 3. Toxic Metabolic Encephalopathy - improved 4. Moderate PEM 5. Severe Aortic stenosis/COPD/Tob dep/HTN/Recent MRSA pneumonia/Physical deconditioning PLAN: * GI/Pulm/Cardio following * Needs diagnostic bronch as outpt per Pulm * DC home prob in AM with HHC and O2 * Cont other meds as below * CM consult for home O2 setup * Cont Atbx Review of Systems - Review of Systems Cardiovascular: negative: chest pain, palpitations, orthopnea, paroxysmal nocturnal dyspnea, edema, light headedness Gastrointestinal: negative: Nausea, Vomiting, Abdominal Pain, Diarrhea, Constipation, Melena, Hematochezia, Other - Medications/Allergies Allergies/Adverse Reactions: Allergies Allergy/AdvReac Type Severity Reaction Status Date / Time No Known Drug Allergies Allergy Verified 02/09/17 21:52 Medications: Current Medications Acetaminophen (Tylenol) 1,000 mg PO Q6H PRN PRN Reason: Headache/Fever or Mild Pain Hydrocodone Bitart/Acetaminophen ([place] 10/325) 1 tab PO Q6H PRN PRN Reason: Moderate Pain (4-6) Last Admin: 02/18/17 16:15 Dose: 1 tab Albuterol/Ipratropium (Duoneb) 3 ml NEB [id number] SCH Last Admin: 02/18/17 19:26 Dose: 3 ml Albuterol/Ipratropium (Duoneb) 3 ml NEB Q2H PRN PRN Reason: .SHORTNESS OF BREATH Last Admin: 02/12/17 03:24 Dose: 3 ml Benzonatate (Tessalon) 200 mg PO Q6H PRN PRN Reason: Cough Doxycycline Hyclate (Vibramycin) 100 mg PO BID [facility] Last Admin: 02/18/17 20:27 Dose: 100 mg Guaifenesin (Robitussin Sf) 200 mg PO Q4H PRN PRN Reason: Cough Last Admin: 02/17/17 10:05 Dose: 200 mg Levofloxacin (Levaquin) 500 mg PO 0600 [facility] Stop: 02/20/17 06:01 Last Admin: 02/18/17 05:28 Dose: 500 mg Lorazepam (Ativan) 2 mg SLOW IVP Q4H PRN PRN Reason: Anxiety/Agitation Last Admin: 02/13/17 20:25 Dose: 2 mg Methocarbamol (Robaxin) 500 mg PO TID [facility] Last Admin: 02/18/17 20:28 Dose: 500 mg Mometasone Furoate/Formoterol Fumar (Dulera 200 Mcg/5 Mcg Inhaler) 2 puff INH BID-RT [facility] Last Admin: 02/18/17 19:27 Dose: 2 puff Nicotine (Nicoderm Patch) 14 mg TOP Q24HR [facility] Last Admin: 02/18/17 16:09 Dose: 14 mg Ondansetron HCl (Zofran Odt) 4 mg PO Q6H PRN PRN Reason: Nausea/Vomiting Ondansetron HCl (Zofran) 4 mg IVP Q6H PRN PRN Reason: Nausea/Vomiting Pantoprazole Sodium (Protonix) 40 mg IVP DAILY [facility] Last Admin: 02/18/17 08:59 Dose: 40 mg Prednisone (Prednisone) 20 mg PO QAM-[facility] Last Admin: 02/18/17 09:00 Dose: 20 mg Pregabalin (Lyrica) 75 mg PO TID [facility] Last Admin: 02/18/17 20:28 Dose: 75 mg Sertraline HCl (Zoloft) 75 mg PO HS [facility] Last Admin: 02/18/17 20:53 Dose: 75 mg
--- NOTE | 2017-02-18 22:49 | PRG ---
DATE OF SERVICE: 02/18/2017 SUBJECTIVE: At this time, Mr. Garrido refuses PEG tube. I think his oropharyngeal dysphagia is bad enough that it would probably help him to avoid oral intake. Although he is probably still at risk for aspirating his secretions, he has continued to refuse PEG tube placement. He is a high risk for PEG tube placement at this time, but if he changes his mind about having it and being n.p.o., I will be more than happy to reevaluate him and place it as I think that the present course is going to be f utile. With recurrent aspirations and his severe aortic stenosis, I do not see how his pneumonia is going to get much better. At this time, we will sign off. If there is any change in the decision on PEG tube placement, please do not hesitate to contact me.
[2017-02-19] MEDS: HYDROcodone/Acetaminophen 10/325 mg Tablet PO PRN (03:19)
[2017-02-19 06:44] LABS: Hemoglobin 13.6 g/dL (14.0-18.0); Mean Corpuscular HGB CONC 32.5 g/dL (32.0-36.0); Mean Corpuscular Hemoglobin 32.2 pg (27.0-31.0); Mean Corpuscular Volume 99.2 fl (80.0-94.0); Mean Platelet Volume 7.3 fL (7.4-10.4); Platelet Count 455 thou/uL (130-400); RBC Distribution Width 13.3 % (11.5-14.5); Red Blood Cell (RBC) Count 4.21 mill/uL (4.70-6.10); White Blood Cell (WBC) Count 22.6 thou/uL (4.8-10.8)
[2017-02-19 06:58] LABS: Anion Gap 11 mmol/L (10-20); BUN (Urea Nitrogen) 12 mg/dL (8.4-25.7); Calc. Creatinine Clearance 111 mL/min (70-130); Calcium 8.8 mg/dL (7.8-10.44); Carbon Dioxide 26 mmol/L (23-31); Chloride 102 mmol/L (98-107); Estimated GFR-MDRD Greater than 90; Glucose 90 mg/dL (80-115); Potassium 3.8 mmol/L (3.5-5.1); Sodium 135 mmol/L (136-145)
[2017-02-19] MEDS: Mometasone/Formoterol 120 PUFF INHALER INH SCH (07:07)
[2017-02-19 07:32] LABS: Eosinophils 1 % (0-10); Lymphocytes 21 % (21-51); MDiff Complete? YES; Monocytes 13 % (0-10); Neutrophil 64 % (42-75); RBC Morphology Normal; Reactive Lymphocytes 1 % (0-10)
[2017-02-19] MEDS: Pantoprazole 40 MG VIAL IVP SCH (08:37)
[2017-02-19] MEDS: Pregabalin 75 MG CAP PO SCH ×2 (08:38→13:54)
[2017-02-19] MEDS: Methocarbamol 500 MG TAB PO SCH ×2 (08:39→13:54)
[2017-02-19] MEDS: Doxycycline 100 MG CAP PO SCH (08:39)
[2017-02-19] MEDS: predniSONE 20 MG TAB PO SCH (08:39)
--- NOTE | 2017-02-19 09:33 | PRG ---
DATE OF SERVICE: 02/19/2017 He is better this morning, awake, alert, responsive. He is planning to go home on low flow O2. PHYSICAL EXAMINATION: VITAL SIGNS: Sats 94% on 2 liters, temperature 97, pulse 109, blood pressure 146/90. CHEST: Chest reveals bilateral rhonchi. CARDIAC: Normal S1, S2. ABDOMEN: Soft, no mass. LABORATORY: White count 20,000, H&H 13 and 41, platelet count 405. IMPRESSION: 1. Chronic obstructive pulmonary disease. 2. Right upper lung infiltrates with hilar adenopathy. 3. Chronic back pain. 4. Severe deconditioning. 4. Aortic stenosis. PLAN: Discharge home on prednisone 10 a day. Refrain from smoking. Antibiotics, doxycycline for 10 days, Levaquin for 5 days. He will be seen in the office in about 2-3 weeks.
[2017-02-19 12:08] VITALS: BP 137/70; TEMP 97.4
--- NOTE | 2017-02-19 19:10 | PRG ---
DATE OF SERVICE: 02/19/2017 SUBJECTIVE: Mr. Garrido is breathing a little bit better. He states that he is swallowing better b ecause Speech Pathology has helped him to understand what foods to eat and not to eat. OBJECTIVE: VITAL SIGNS: Temperature 97, pulse 109-119, blood pressure 137/70. LUNGS: Wheezing bilaterally in different areas, coarse rhonchi, decreased breath sounds at the bases . ABDOMEN: Soft, nontender. LABORATORY STUDIES: White count 22,000, hemoglobin 13, platelet count 455. ASSESSMENT: With regard to his oropharyngeal dysphagia, it is still unclear whether he has a Zenker' s diverticulum which he reports was diagnosed 20 years ago, whether he has had a stroke, or whether jazlyn nielsen has another process. There are no overt masses in his esophagus on his CAT scan. At this time, hi s respiratory status has improved to the point as his pneumonia has improved to the point where I thi nk he could tolerate an EGD with PEG. He states he is going to go home and he is going on eat better , will not aspirate, and wants to just go in for [place] and consider that later. I explained to jazlyn mathews I think he is going to continue to aspirate and his pneumonia is not going to get better and that with the improvement we have seen him from when he came in, I think it is still a high risk, but not quite as risky to set him place a PEG now. I advised that we do that tomorrow. He, however, has dec ided he is going to go home. With regard to his lungs, Dr. Brush wants to wait until he has a PEG tube placed and give his lungs li ttle bit rest before proceeding with any kind of bronchoscopy, which I think is probably a reasonable course. He still may aspirate with a PEG on saliva, but he is going to aspirate a lot less than he has on food. As far as the aorta goes, Cardiology does not want to move on this until his pneumonia is cleared up, which is understandable. So at this time, I think the progressive thing should be PEG tube placement with further respiratory improvement, then bronchoscopy, and if there is no malignancy, then repair of the aortic valve. Ryann lizarraga, I have recommended the patient he stay and we will place the PEG tube tomorrow if he is committed to not eating by mouth, but at this time, he states he thinks he can eat better without aspiration re viewing diet with Speech Pathology. I have informed him I do not think that is going to happen and I think he is going to return to the hospital for worsening pneumonia; however, he has made the decisi on to go home and then he said he will reconsider coming back after the holidays. Again, I have explained him no uncertain terms that I think that he will be back sicker before then a nd that could be a fatal decision for him.
--- NOTE | 2017-02-19 21:08 | DIS ---
DISCHARGE DATE: 02/19/2017 DISCHARGE DISPOSITION: Home. FOLLOWUP: 1. With primary care provider, Dr. Jeffery Crum in 1 week. 2. [facility] has been arranged. ALLERGIES: No known drug allergies. Patient was seen and examined on the day of discharge. Denies any new complaints. Overall, feels be tter. Requesting to be discharged so that he can spend [place] with his family. Still declining P EG tube. DISCHARGE MEDICATIONS: 1. Levaquin 500 mg daily, #5, Combivent inhaler as needed, Protonix 40 mg daily, prednisone taper. 2. Other home medications were resumed including Symbicort 2 puffs b.i.d., [place] as needed, Simbrinz a eyedrops. 3. Robaxin 500 mg 3 times daily. 4. Movantik. 5. Lyrica 75 mg three times daily. 6. Zoloft 75 mg daily. BRIEF HOSPITAL COURSE: Patient is a 66-year-old male with COPD, with ongoing tobacco abuse, history of alcohol abuse, hypertension, depression, with recent MRSA pneumonia, presented to the emergency ro om with cough, fever, and generalized weakness. He was recently discharged from [facility]. Please refer to the history and physical dated 02/09/[address] Cruz for further details. The patient was admitted to the hospital with a diagnosis of sepsis. [facility]. He was started on broad spectrum antibiotics including vancomycin, Levaquin, and Zo syn. Chest x-ray on admission was consistent with multifocal pneumonia. His pneumonia was felt to b e due to aspiration. He was later transferred to the regular floor. His antibiotics have been narro wed down to Levaquin daily per pre algebra teacher. CT scan of the chest was done 3 days ago that was cons istent with a dense consolidation in the right upper lobe. He also had mediastinal and hilar adenopa thy with bilateral pleural effusion and bibasilar atelectasis/infiltrate. On admission, patient had echocardiogram that showed severe aortic stenosis with a peak gradient of 8 0 mmHg with mean gradient of 47 mmHg with an aortic valve area of 0.8 cm. Ejection fraction was 55-6 0%. He was evaluated by Cardiology, Dr. Jacinto Mcrae. He will probably require cardiac catheteri zation in anticipation of valve replacement once his lung issues settled. Due to moderate to severe protein calorie malnutrition and swallow dysfunction, he was evaluated by [facility]an[facility] willisoenterolog[facility], Dr. Manjarrez. PEG tube was offered; however, patient kept declining. He underwent a modified barium swallow on 02/13/2017, which showed mild pooling in the pyriform sinuses along with e vidence of esophageal reflux with aspiration noted due to reflux. He has been started on PPIs. He w ill follow up with above consultants as outpatient. Patient is at very high risk of readmission due to continued refusal of PEG tube. He will be discharged today. He was also accepted an inpatient re habilitation. However, patient declined. Home health care has been arranged. FINAL DIAGNOSES: 1. Sepsis with acute organ dysfunction secondary to healthcare associated pneumonia. 2. Recent methicillin-resistant Staphylococcus aureus pneumonia. 3. Oropharyngeal dysphagia. Patient is refusing PEG tube. 4. Severe aortic stenosis. 5. Severe chronic obstructive pulmonary disease. 6. Moderate protein energy malnutrition. 7. Chronic respiratory failure on home oxygen. Home oxygen has been arranged. 8. Tobacco dependence. Patient was counseled. 9. Hypertension. 10. Physical deconditioning. 11. Toxic metabolic encephalopathy on admission, improved. 12. Chronic anemia. 13. Hyponatremia. Plan of care was discussed with the patient in detail. He stated understanding. Total time coordinating the discharge of this patient was 38 minutes.
[2017-02-20] MEDS ORDERED: predniSONE 5 MG TAB PO SCH (08:00)
--- NOTE | 2017-02-21 13:55 | PQF ---
JACK PORTILLO MALIK MD [phone] [facility]- [id number] CLINICAL DOCUMENTATION CLARIFICATION FORM: POST DISCHARGE Please exercise your independent, professional judgment in responding to the clarification form. Clinical indicators are provided on the bottom of this form for your review. Thank you. PN PULMED 02/11- "Respiratory Failure"; sats are 95% on 2L NC, respiratory rate 22. PN PULMED 02/12- "This morning having more difficulty breathing. He is clearly having use of accessory muscles"; Respirations 30, sats are 96%. Discussed with his daughter, he may need to be intubated. Continue aggressive neb treatments, steroids, and antibiotics. BIPAP- 02/12 time 1022 to 02/13/ time 0317. BIPAP- 02/14 time 0000 to 0400. DC SUMMARY; documents, 'Chronic respiratory failure on home oxygen. ' FINAL DIAGNOSIS; includes; Sepsis with acute organ dysfunction secondary to healthcare associated pneumonia Severe aortic stenosis Severe chronic obstructive pulmonary disease Chronic respiratory failure on home oxygen Tobacco dependence Please check appropriate box(s): [ x] Acute Respiratory Failure: [ x ] with Hypoxia [ ] with Hypercapnia [ ] Acute On Chronic Respiratory Failure: [ ] with Hypoxia [ ] with Hypercapnia [ ] Acute Respiratory Failure due to: (etiology) [ ] Acute Respiratory Insufficiency following (if applicable): [ ] trauma [ ] surgery [ ] Chronic Respiratory Failure only [ ] with Hypoxia [ ] with Hypercapnia [ ] Hypoxia [ ] Other diagnosis [ ] Unable to determine In addition, please specify: Present on Admission (POA): [ ] Yes [ ] No [x ] Unable to determine CLINICAL INDICATORS - SIGNS / SYMPTOMS / LABS ABG pH < 7.35 or > 7.45 Decreased oxygen saturation (<90% room air or < 95% on oxygen). Cyanosis/Hypoxia PCO2 > 50 mm Hg (PCO2 findings of 10-15 mm Hg above the patient's normal level if patient has COPD) PO2 < 60 mm Hg (PCO2 findings of 10-15 mm Hg below the patient's normal level if patient has COPD) Labored or rapid respirations (use of accessory muscles or inability to speak full sentences, air hunger) Pulmonary vascular congestion CXR RISK FACTORS History of home O2 use COPD Tobacco abuse / exposure Pneumonia Toxic metabolic encephalopathy Pleural effusion TREATMENTS: Oxygen Monitoring of oxygenation status Mechanical ventilation / BiPAP Respiratory treatments Serial CXR Antibiotics IV Bronchodilators Diuresis Pulmonary Consult ICU/Stepdown (This form is maintained as a part of the permanent medical record) 2014 [email or web address]. All Rights Reserved [email or web address] [phone] MTDD
--- NOTE | 2017-03-01 15:00 | EKG ---
Test Reason : Blood Pressure : / mmHG Vent. Rate : 122 BPM Atrial Rate : 122 BPM P-R Int : 116 ms QRS Dur : 086 ms QT Int : 330 ms P-R-T Axes : 068 062 068 degrees QTc Int : 470 ms Sinus tachycardia Nonspecific T wave abnormality Abnormal ECG Confirmed by OSWALD GUEVARA D.O. ([id number]), assignment editor MELISSA MIRAMONTES ([id number]) on 03/01/2017 2:59:06 PM Referred By: Confirmed By:OSWALD GUEVARA D.O.
== END 2017-02-19 15:25 | disposition home health service (06) | DRG 871 ==
LOC: ERS 14:39 → IMCU/EMU 15:20 → 2NO 02-15 17:21
PROVIDERS: ADMIT Family Medicine; ATTEND Family Medicine
PROC: 5A09357 Assistance with Respiratory Ventilation, Less than 24 Consecutive Hours, Continuous Positive Airway Pressure (ICD-10-PCS; principal; 2017-02-09)
PROC: 5A09357 Assistance with Respiratory Ventilation, Less than 24 Consecutive Hours, Continuous Positive Airway Pressure (ICD-10-PCS; 2017-02-12)
PROC: 5A09357 Assistance with Respiratory Ventilation, Less than 24 Consecutive Hours, Continuous Positive Airway Pressure (ICD-10-PCS; 2017-02-14)
DX: A41.9 Sepsis, unspecified organism (principal); J69.0 Pneumonitis due to inhalation of food and vomit; J96.01 Acute respiratory failure with hypoxia; I47.2 Ventricular tachycardia; G92 Toxic encephalopathy; E44.0 Moderate protein-calorie malnutrition; J90 Pleural effusion, not elsewhere classified; J96.11 Chronic respiratory failure with hypoxia; J15.9 Unspecified bacterial pneumonia; E87.1 Hypo-osmolality and hyponatremia; J44.0 Chronic obstructive pulmonary disease with (acute) lower respiratory infection; Z68.1 Body mass index [BMI] 19.9 or less, adult; R13.12 Dysphagia, oropharyngeal phase; I35.0 Nonrheumatic aortic (valve) stenosis; Z99.81 Dependence on supplemental oxygen; F17.210 Nicotine dependence, cigarettes, uncomplicated; R65.20 Severe sepsis without septic shock; I10 Essential (primary) hypertension; D64.9 Anemia, unspecified; Z86.14 Personal history of Methicillin resistant Staphylococcus aureus infection; Z53.29 Procedure and treatment not carried out because of patient's decision for other reasons; F32.9 Major depressive disorder, single episode, unspecified; F10.10 Alcohol abuse, uncomplicated; Z91.81 History of falling; Z98.1 Arthrodesis status
CPT/HCPCS: 36415; 36416; 71010; 71260; 74230; 80048; 80053; 80202; 82330; 82553; 82803; 83605; 83735; 83880; 84100; 84443; 84484; 85007; 85025; 85027; 87040; 87070; 87205; 93005; 93306; 94640; 94660; 94760; 96361; 96365; 96368; 96375; C9113; G8978-GP-CK; G8979-GP-CI; G8987-GO-CJ; G8988-GO-CH; G8996-GN-CL; G8996-GN-CN; G8997-GN-CK; G8997-GN-CL; J0456; J2020; J2060; J2543; J3370; J7050; J7506; J7620; J7626

== ENCOUNTER 2017-03-11 12:33 | Outpatient (CLI) | payer MEDICARE, OTHER ==
--- NOTE | 2017-03-11 13:43 | RAD ---
TWO VIEWS OF THE CHEST: Date: 03-11-17 Comparison: 02-14-17 History: Shortness of breath. FINDINGS: There is dense opacity in the right lung apex associated with right upper lobe consolidation/collapse and prominent adjacent pleural thickening, unchanged when compared to studies dating back to 7. There is no pneumothorax seen on either side. There is mild pulmonary vascular prominence. There is pulmonary hyperinflation. Tiny bilateral pleural effusions are suspected, when compared to a chest CT performed 02-16-17. IMPRESSION: 1. Nonspecific consolidative change in the right upper lobe with adjacent pleural thickening, better evaluated on prior CT. Trace residual pleural effusions, improved since the 02-16-17 examination. 2. Persistent opacity in the right lung apex may signify infectious pneumonitis, malignancy and/or sc ar. Continued follow up to full resolution is advised. Comparison imaging older than the prior studie s provided in January 2017 may be beneficial as well. POS: [facility]
== END 2017-03-11 12:34 | disposition home or self-care (01) ==
LOC: RAD 12:33
PROVIDERS: ATTEND Internal Medicine Pulmonary Disease
DX: R06.00 Dyspnea, unspecified (principal); R91.8 Other nonspecific abnormal finding of lung field; J92.9 Pleural plaque without asbestos
CPT/HCPCS: 71046

== ENCOUNTER 2017-03-13 18:18 | Inpatient (IN) | payer MEDICARE, OTHER ==
[2017-03-13 19:16] LABS: #Basophils 0.1 thou/uL (0.0-0.2); #Eosinphils 0.2 thou/uL (0.0-0.7); #Lymphocytes 3.4 thou/uL (1.20-3.40); #Monocytes 1.9 thou/uL (0.11-0.59); #Neutrophils 15.9 thou/uL (1.40-6.50); %Basophils 0.3 % (0.0-1.0); %Lymphocytes 15.9 % (21.0-51.0); %Monocytes 8.8 % (0.0-10.0); Hemoglobin 14.3 g/dL (14.0-18.0); Mean Corpuscular HGB CONC 32.2 g/dL (32.0-36.0); Mean Corpuscular Hemoglobin 32.8 pg (27.0-31.0); Mean Platelet Volume 7.6 fL (7.4-10.4); Platelet Count 357 thou/uL (130-400); RBC Distribution Width 13.6 % (11.5-14.5); Red Blood Cell (RBC) Count 4.36 mill/uL (4.70-6.10); White Blood Cell (WBC) Count 21.5 thou/uL (4.8-10.8)
--- NOTE | 2017-03-13 19:37 | RAD ---
PORTABLE CHEST ONE VIEW 03/13/17 at 6:07 p.m. HISTORY: Dyspnea. FINDINGS/IMPRESSION: Comparison made with exam of 03/11/17. Persistent opacity in the right upper lobe. The heart size is st able. New patchy infiltrates are seen in the lower lung bolanos, right greater than left. This is susp icious for acute pneumonia. POS: [facility]
[2017-03-13 19:40] LABS: CKMB 2.3 ng/mL (0-6.6); Troponin I 0.021 ng/mL (< 0.028)
[2017-03-13 19:42] LABS: ALT (SGPT) 12 U/L (8-55); AST (SGOT) 15 U/L (5-34); Albumin 3.7 g/dL (3.4-4.8); Alkaline Phosphatase 106 U/L (40-150); Anion Gap 15 mmol/L (10-20); BUN (Urea Nitrogen) 13 mg/dL (8.4-25.7); Bilirubin, Total 0.4 mg/dL (0.2-1.2); CK (CPK) 57 U/L (30-200); Calc. Creatinine Clearance 0 mL/min (70-130); Calcium 9.4 mg/dL (7.8-10.44); Carbon Dioxide 22 mmol/L (23-31); Chloride 104 mmol/L (98-107); Estimated GFR-MDRD Greater than 90; Glucose 146 mg/dL (80-115); Potassium 3.9 mmol/L (3.5-5.1); Protein, Total 6.7 g/dL (5.8-8.1); Sodium 137 mmol/L (136-145)
[2017-03-13] MEDS ORDERED: Piperacillin/Tazobactam 4.5 GM in Sodium Chloride 0.9% 100 ML IVPB ONE (20:15)
[2017-03-13] MEDS ORDERED: Vancomycin HCl 1 GM in Premix Bag 1 BAG IVPB SCH (20:15)
[2017-03-13 20:16] LABS: Actual Bicarbonate (HCO3a) 26.5 mEq/L (22-26); Base Excess (BEa) 0.6 mEq/L (0 (+/-) 2.5); CO2 Tension 47.4 mmHg (35.0-45.0); Calcium, Ionized 1.2 mmol/L (1.12-1.30); Hematocrit-ABG 41.6 % (42.0-52.0); O2 Tension (PaO2) 90.6 mmHg (80.0-100.0); pH, Arterial 7.37 (7.35-7.45)
[2017-03-13 20:20] LABS: Analyzer IN Cardio ER; Puncture Site RRA
[2017-03-13] MEDS ORDERED: Ondansetron ODT 4 MG TAB SL PRN (23:05)
[2017-03-13] MEDS ORDERED: Ondansetron HCl/PF 4 MG/2 ML Vial IVP PRN (23:05)
[2017-03-13] MEDS ORDERED: Acetaminophen 325 MG TAB PO PRN (23:05)
[2017-03-14] MEDS ORDERED: Milk Of Magnesia 30 ML UDCUP PO PRN (01:54)
[2017-03-14] MEDS ORDERED: Ondansetron ODT 4 MG TAB PO PRN (01:54)
[2017-03-14] MEDS ORDERED: Acetaminophen 325 MG TAB PO PRN (01:54)
[2017-03-14] MEDS ORDERED: hydrALAZINE 20 MG/ML VIAL SLOW IVP PRN (01:54)
[2017-03-14] MEDS ORDERED: Ondansetron HCl/PF 4 MG/2 ML Vial IVP PRN (01:54)
[2017-03-14] MEDS ORDERED: Lorazepam 2 MG/ML VIAL SLOW IVP PRN (01:54)
[2017-03-14] MEDS ORDERED: Piperacillin/Tazobactam 3.375 GM in Sodium Chloride 0.9% 100 ML IVPB SCH (02:00)
[2017-03-14] MEDS: Piperacillin/Tazobactam 3.375 GM in Sodium Chloride 0.9% 100 ML IVPB SCH ×4 (03:29→20:17)
[2017-03-14 05:59] LABS: #Lymphocytes 1.8 thou/uL (1.20-3.40); #Monocytes 0.4 thou/uL (0.11-0.59); #Neutrophils 12.1 thou/uL (1.40-6.50); %Basophils 0.2 % (0.0-1.0); %Eosinophils 0.2 % (0.0-10.0); %Lymphocytes 12.3 % (21.0-51.0); %Monocytes 2.4 % (0.0-10.0); %Neutrophils 84.8 % (42.0-75.0); Hemoglobin 12.2 g/dL (14.0-18.0); Mean Corpuscular HGB CONC 32.7 g/dL (32.0-36.0); Mean Corpuscular Hemoglobin 33.1 pg (27.0-31.0); Mean Platelet Volume 7.9 fL (7.4-10.4); Platelet Count 304 thou/uL (130-400); RBC Distribution Width 13.5 % (11.5-14.5); Red Blood Cell (RBC) Count 3.68 mill/uL (4.70-6.10); White Blood Cell (WBC) Count 14.3 thou/uL (4.8-10.8)
--- NOTE | 2017-03-14 06:02 | HP ---
PRIMARY CARE PHYSICIAN: Dr. Crum. CHIEF COMPLAINT: Shortness of breath. HISTORY OF PRESENT ILLNESS: The history of present illness is very limited as the patient is current ly on BiPAP and he tells me that he basically cannot talk to me right now. He was able to give me so me information and the remainder was primarily yes/no questions by nodding and shaking of the head. Mr. Garrido is a pleasant 66-year-old gentleman who was recently admitted to our facility for pneumo miegl with sepsis. He also has history of COPD and history of MRSA pneumonia in the past. He was hieu miguel and discharged home and says that he was doing okay when he got home until approximately a day an d a half to 2 days prior to admission. He says that he began becoming more and more short of breath and this is the reason he came to the emergency room. He was evaluated in the ER and found to have a new left-sided infiltrate and is being admitted for pneumonia with acute respiratory failure. The p atient is currently on BiPAP. The patient also has a history of severe aortic stenosis and there is also some concern that some of his symptomatology may be related to the aortic stenosis as well. The patient denies any fevers or chills. No chest pain, no abdominal pain, no nausea, no vomiting etc.; however, this was essentially about all I was able to obtain. The review of systems again limited d ue to the patient being on BiPAP and unable to talk in complete sentences and therefore essentially i s unobtainable. PAST MEDICAL HISTORY: Taken from his previous history and physical dated 02/09/2017 by my colleague and this includes MRSA pneumonia, chronic respiratory failure secondary to COPD, tobacco abuse, alcoh ol abuse, frequent falls, cervical spinal stenosis, protein calorie malnutrition, deconditioning, dep ression, hypertension, and critical aortic stenosis. PAST SURGICAL HISTORY: He has had C-spine fusion, rib fracture repair and a splenectomy. ALLERGIES: No known drug allergies. SOCIAL HISTORY: He is a current smoker, half a pack a day; history of marijuana use, history of alco hol abuse, unknown how frequent. He lives with his daughter. MEDICATIONS: Taken from the electronic records. Include Norvasc 5 mg daily, sertraline 75 mg at bed time, hydrochlorothiazide 12.5 mg daily, Pepcid 20 mg daily, Lyrica 75 mg t.i.d., Symbicort 160/4.5 t wo puffs twice day, Simbrinza ophthalmic 1 drop to the left eye twice a day, [place] 10/325 three times a day as needed, Combivent 2 puffs q.i.d. as needed, Robaxin 500 mg t.i.d. and Movantik 25 mg daily. PHYSICAL EXAMINATION: GENERAL: He is alert and oriented. He does appear to be in mild distress due to shortness of breath . He is on BiPAP. He is also a bit cachectic. VITAL SIGNS: Blood pressure was 98/52, heart rate is 91, respiratory rate of 20, temperature is 98.3 . HEENT: Pupils are equal, round, and reactive. NECK: No adenopathy. LUNGS: He has got poor air movement. I was unable to appreciate any rales; however, there was quite a bit of noise from the BiPAP machine. CARDIOVASCULAR: He has a normal S1, S2. He does have a grade 2/6 systolic murmur. ABDOMEN: Soft, nontender, nondistended. Positive for bowel sounds. No rebound or guarding. EXTREMITIES: There is no edema. NEUROLOGIC: The exam is nonfocal. LABORATORY DATA: White blood cell count 21.5, hemoglobin 14.3, hematocrit is 44.5, platelet count is 357. Sodium 137, potassium 3.9, chloride is 104, CO2 was 22, BUN of 13, creatinine 0.58, glucose is 146. ProBNP was higher than previous admission at 1331. ASSESSMENT AND PLAN: 1. This is a 66-year-old gentleman that presents to the emergency room with increasing shortness of breath. It appears he has a new left mid to lower lobe infiltrate. He has been recently hospitalize d; therefore, this is likely a healthcare associated pneumonia. His proBNP is also elevated. He als o has a history of critical aortic stenosis and therefore he may also have some heart failure associa miguel with this due to the valvular heart disease. He has been admitted to the [facility]. We will place roni talley on broad spectrum IV antibiotics. A pulmonary consult will be obtained. Place him on DuoNebs give n his history of chronic obstructive pulmonary disease. Continue his usual medications regarding his lung disease which would consist of the Symbicort or its equivalent Dulera. 2. For the history of aortic stenosis, an echo has already been ordered. We will consult Cardiology to aid in management. 3. Hypertension. We will start his usual antihypertensive medications along with the p.r.n. medicat ion as well. 4. With regards to the pneumonia, it is noted that the patient had a modified barium swallow study w hich showed that he had fairly severe reflux and risk of aspiration from this. Apparently PEG tube p lacement had been discussed with the patient and he had refused. Then pneumonia could also be relate d to aspiration as well and antibiotic choice will reflect this.
[2017-03-14 06:11] LABS: Anion Gap 11 mmol/L (10-20); BUN (Urea Nitrogen) 12 mg/dL (8.4-25.7); Calc. Creatinine Clearance 105 mL/min (70-130); Calcium 9.1 mg/dL (7.8-10.44); Carbon Dioxide 27 mmol/L (23-31); Chloride 104 mmol/L (98-107); Estimated GFR-MDRD Greater than 90; Glucose 150 mg/dL (80-115); Potassium 4.1 mmol/L (3.5-5.1); Sodium 138 mmol/L (136-145)
[2017-03-14] MEDS ORDERED: Mometasone/Formoterol 120 PUFF INHALER INH SCH (06:30)
[2017-03-14] MEDS: Vancomycin HCl 1 GM in Premix Bag 1 BAG IVPB SCH ×2 (08:36→20:17)
[2017-03-14] MEDS: Enoxaparin Sodium 40 MG/0.4 ML SYRINGE SC SCH (08:37)
[2017-03-14] MEDS: Famotidine/PF 20 mg/2ml Vial SLOW IVP SCH ×2 (08:37→20:17)
[2017-03-14 09:30] VITALS: BMI 19.3
[2017-03-14] MEDS: Docusate 100 MG CAP PO SCH ×2 (10:08→20:15)
[2017-03-14] MEDS: Methocarbamol 500 MG TAB PO SCH ×3 (10:08→20:16)
[2017-03-14] MEDS: Pregabalin 75 MG CAP PO SCH ×3 (10:14→20:16)
--- NOTE | 2017-03-14 14:17 | CON ---
DATE OF CONSULTATION: 03/14/2017 Consultation note of which 50% of my 70-minute time of the patient is spent with direct patient care and counseling. HISTORY OF PRESENT ILLNESS: A 66-year-old gentleman just recently seen in the office. He has end-st age COPD, severe aortic stenosis, severe deconditioning, ongoing dysphagia, and cachexia. An abdomin al x-ray suggestive of possibly a right lung mass. He was too weak to undergo bronchoscopy. He now presents here yesterday with ongoing symptoms of cough and shortness of breath, unresponsive to his u sual home medication. He denies any hemoptysis. Most days he can walk about 50 feet without getting short of breath. PAST MEDICAL HISTORY: Extensively and well outlined in multiple medical records. Pertinent for andrei re aortic stenosis, dysphagia, COPD, pneumonia, lung mass. SOCIAL HISTORY: Previous heavy alcohol abuse. Previous tobacco abuse. PAST SURGICAL HISTORY: Neck surgery, rib surgery, splenectomy. MEDICATIONS: List of medicines from home includes Movantik 25, Robaxin, Combivent, hydrocodone, Symb icort, eyedrops, Lyrica, Pepcid, hydrochlorithiazide, Zoloft and amlodipine. ALLERGIES: None. SOCIAL/FAMILY HISTORY: . REVIEW OF SYSTEMS: Otherwise, 10-point negative. PHYSICAL EXAMINATION: VITAL SIGNS: Blood pressure 95/53, sats 100% on 2 liters, temperature 98, pulse 70, respiratory 18. CHEST: Decreased breath sounds, no wheezing. CARDIAC: Normal S1 and S2. 2/6 diastolic murmurs. No gallops. LABORATORY DATA: White count 14,000, H&H 12 and 37, platelet count 304. Electrolytes are normal. P O2 is 90, pCO2 of 37 on BiPAP. X-ray shows infiltrates, more pronounced in the right lung, right upp er lung mass-like density. IMPRESSION: 1. Chronic obstructive pulmonary disease exacerbation, bronchitis, pneumonia. 2. Aspiration. 3. Aortic stenosis, previous alcohol, tobacco, and severe deconditioning. I will discuss with the came back today, he is still unable to swallow. If patient agrees, PEG may be placed. Continue antibiotics, Zosyn, vancomycin, supportive care, steroids. We will follow. This is a consultation note with 50% of my 70-minute spent with the patient at the bedside.
[2017-03-14] MEDS: Nicotine 14 MG PATCH TOP SCH (15:59)
--- NOTE | 2017-03-14 16:07 | PDOC.PN ---
- Subjective Encounter Start Date: 03/14/17 Encounter Start Time: 16:00 Subjective: f/u for acute/chronic hypoxic resp failure with PNA, COPD. Currently -: on Vancomycin/Zosyn and Solumedrol. - Objective Resuscitation Status: Resuscitation Status FULL:Full Resuscitation MAR Reviewed: Yes Vital Signs & Weight: Vital Signs (12 hours) Temp Pulse Pulse Resp BP BP Pulse Ox 03/14/17 15:46 98.8 F 85 20 94/62 98 03/14/17 12:07 81 16 03/14/17 12:03 88 12 03/14/17 11:29 97.8 F 82 18 91/60 100 03/14/17 10:00 84 96/56 L 03/14/17 09:25 100 03/14/17 08:00 98.0 F 70 18 96 03/14/17 07:26 98.0 F 70 18 95/53 L 100 03/14/17 06:55 72 21 H 99 03/14/17 06:20 83 20 91/60 100 Pulse Ox 03/14/17 15:46 03/14/17 12:07 03/14/17 12:03 03/14/17 11:29 03/14/17 10:00 95 03/14/17 09:25 03/14/17 08:00 03/14/17 07:26 03/14/17 06:55 03/14/17 06:20 Weight Admit Weight 131 lb Weight 134 lb 5 oz I&O: 03/13/17 03/14/17 03/15/17 06:59 06:59 06:59 Intake Total 110 Output Total 275 Balance -165 Result Diagrams: 03/14/17 05:03 03/14/17 05:03 Radiology Reviewed by me: Yes (PCXR - new infiltrates R>L lower bolanos) EKG Reviewed by me: Yes (Tele - SR in 80's) Phys Exam - Physical Examination alert, responsive HEENT: PERRLA, oral pharynx no lesions Neck: no JVD, supple diminished in bases, scattered coarse sounds Cardiovascular: RRR Gastrointestinal: soft, non-tender, no distention, positive bowel sounds Musculoskeletal: no edema, pulses present Neurological: normal sensation, moves all 4 limbs Psychiatric: A&O x 3 Skin: normal turgor, cap refill <2 seconds Dx/Plan (1) Healthcare associated bacterial pneumonia Code(s): J15.9 - UNSPECIFIED BACTERIAL PNEUMONIA Status: Acute Comment: multifocal involvement, see #1 above, Pulmonology following, Gagandeep, Solumedrol , continue Zosyn/Vancomycin (2) Dysphagia Code(s): R13.10 - DYSPHAGIA, UNSPECIFIED Status: Chronic Qualifiers: Dysphagia type: oropharyngeal phase Qualified Code(s): R13.12 - Dysphagia, oropharyngeal phase Comment: soft diet, re-evaluate swallowing function in am, considering PEG placement (3) Moderate protein-calorie malnutrition Code(s): E44.0 - MODERATE PROTEIN-CALORIE MALNUTRITION Status: Chronic Comment: Ensure TID, Reg diet (4) Physical deconditioning Code(s): R53.81 - OTHER MALAISE Status: Chronic Comment: PT/OT for functional assessment, fall risk precautions (5) Tobacco abuse Code(s): Z72.0 - TOBACCO USE Status: Chronic Comment: Nicotine patch 14mg TD daily (6) Severe aortic stenosis Code(s): I35.0 - NONRHEUMATIC AORTIC (VALVE) STENOSIS Status: Chronic Comment: Not a surgical candidate currently, med mgmt - Plan continue antibiotics, PT/OT, professor of social work, respiratory therapy, out of bed/ ambulate, DVT proph w/SCDs Continue supportive mgmt -: Continue Vancomycin and Zosyn -: Palliative screening, likely will transition home on Hospice -: Continue Solumedrol -: Likely home in 24-48h on Hospice * AM lab: CBC
[2017-03-14] MEDS: Mometasone/Formoterol 120 PUFF INHALER INH SCH (18:35)
[2017-03-14] MEDS ORDERED: HYDROcodone/Acetaminophen 5/325 mg Tablet PO SCH (21:30)
[2017-03-15] MEDS: Piperacillin/Tazobactam 3.375 GM in Sodium Chloride 0.9% 100 ML IVPB SCH ×3 (01:50→14:27)
[2017-03-15 03:50] LABS: Band 3 % (5-11); Hemoglobin 11.5 g/dL (14.0-18.0); Lymphocytes 22 % (21-51); MDiff Complete? YES; Mean Corpuscular HGB CONC 32.8 g/dL (32.0-36.0); Mean Corpuscular Hemoglobin 33.4 pg (27.0-31.0); Mean Platelet Volume 7.8 fL (7.4-10.4); Monocytes 4 % (0-10); Neutrophil 71 % (42-75); PLT Morphology Comment Appears Adequate; Platelet Count 287 thou/uL (130-400); RBC Distribution Width 13.6 % (11.5-14.5); Red Blood Cell (RBC) Count 3.45 mill/uL (4.70-6.10); White Blood Cell (WBC) Count 13.6 thou/uL (4.8-10.8)
[2017-03-15] MEDS: Pregabalin 75 MG CAP PO SCH ×2 (08:23→14:27)
[2017-03-15] MEDS: Docusate 100 MG CAP PO SCH (08:24)
[2017-03-15] MEDS: Methocarbamol 500 MG TAB PO SCH ×2 (08:24→14:28)
[2017-03-15] MEDS: Famotidine/PF 20 mg/2ml Vial SLOW IVP SCH (08:24)
[2017-03-15] MEDS: Vancomycin HCl 1 GM in Premix Bag 1 BAG IVPB SCH (08:25)
[2017-03-15] MEDS: Enoxaparin Sodium 40 MG/0.4 ML SYRINGE SC SCH (08:25)
[2017-03-15 08:35] LABS: Vancomycin, Trough 12.2 ug/mL
[2017-03-15] MEDS: Mometasone/Formoterol 120 PUFF INHALER INH SCH (09:41)
--- NOTE | 2017-03-15 11:07 | PRG ---
DATE OF SERVICE: 03/15/2017 Awake, alert, responsive. PHYSICAL EXAMINATION: VITAL SIGNS: Sats 100% on 2 liters, respirations 22, temperature 97. I's and O's 1150 in, 850 out. CHEST: Chest reveals bilateral rhonchi and crackles. CARDIAC: Normal S1, S2, no gallops. White count 13,000, H&H 11 and 35, platelet count is normal. IMPRESSION: 1. Recurrent aspiration pneumonia. 2. Dysphagia. 3. Chronic obstructive pulmonary disease. 4. Congestive heart failure. 5. Aortic sclerosis. PLAN: As per long discussion with the patient's family, he wants comfort care, Hospice. Disposition home whenever the family has agreed to do so.
[2017-03-15] MEDS: Nicotine 14 MG PATCH TOP SCH (14:27)
[2017-03-15 16:19] VITALS: BP 124/82; TEMP 98.2
--- NOTE | 2017-03-15 16:46 | DIS ---
DATE OF ADMISSION: 03/14/2017 DATE OF DISCHARGE: 03/15/2017 DISCHARGE DIAGNOSES: 1. Healthcare-associated bacterial pneumonia, suspected. 2. Question of aspiration pneumonia, component. 3. Dysphagia. 4. End-stage chronic obstructive pulmonary disease. 5. Suspected lung carcinoma. 6. Severe aortic stenosis. 7. Moderate protein calorie malnutrition. 8. Physical deconditioning. 9. Tobacco abuse. 10. Diastolic dysfunction with preserved ejection fraction of 55%. CONSULTATIONS: Dr. Brush with Pulmonology Service. PERTINENT LABORATORY AND X-RAY FINDINGS: Basic metabolic profile within normal limits. Lactic acid level 1.2, magnesium 1.7. LFTs within normal limits. BNP 1331, previously noted 677 on 02/12/2017. CBC showed a white blood cell count ranged between 13.6-21.5, hemoglobin ranged between 11.5-14.3. Blood cultures x2 dated 03/13/2017 showed no growth to date. Portable chest x-ray dated 03/13/2017 s howed persistent opacification in the right upper lobe. New patchy infiltrates in the lower lung fie lds, right greater than left. A 2D transthoracic echocardiogram dated 03/14/2017 showed ejection fra ction of 55% to 60%. Diastolic dysfunction noted. Severe aortic stenosis. HOSPITAL COURSE: The patient was admitted to the intermediate care unit after presenting with increa sed shortness of breath in the context of known chronic obstructive pulmonary disease with history of recurrent pneumonia and suspected aspiration with dysphagia. The patient was placed on broad-spectr um antibiotic therapy after concern for healthcare-associated pneumonia and aspiration component with IV vancomycin and Zosyn. The patient also received IV Solu-Medrol and was evaluated by the Pulmonol ogy Service. The patient was given general pulmonary supportive measures and bronchodilator therapy. Due to patient's comorbid status, recurrent admissions, severe aortic stenosis, advanced lung disea se and recurrent aspiration with desire for increased p.o. intake, the patient was evaluated for hosp ice. The patient was deemed an appropriate candidate and decided to pursue comfort care on an outpat ient basis with hospice. The patient will transition to hospice at home on 03/15/2017. DISCHARGE MEDICATIONS: 1. Amlodipine 5 mg 1 tablet p.o. daily. 2. Simbrinza 1% one drop to left eye b.i.d. 3. Symbicort 160/4.5 two puffs inhaled b.i.d. 4. Omnicef 300 mg p.o. b.i.d. 5. Pepcid 20 mg 1 tab p.o. daily. 6. Hydrochlorothiazide 12.5 mg p.o. daily. 7. Batson 10/325 mg 1 tab p.o. t.i.d. p.r.n. 8. Systane gel topically daily. 9. Combivent metered dose inhaler 2 puffs inhaled q.i.d. p.r.n. 10. Robaxin 500 mg p.o. t.i.d. 11. Movantik 25 mg p.o. daily. 12. Prednisone 10 mg 2 tabs p.o. b.i.d. x3 days, followed by 3 tabs p.o. daily x3 days, followed by 2 tabs p.o. daily x3 days, followed by 1 tab p.o. daily. 13. Lyrica 75 mg 1 tab p.o. t.i.d. 14. Sertraline 75 mg p.o. at bedtime. FOLLOWUP: The patient will follow up with his primary care provider, Dr. Crum as needed. The patient will follow up with [facility] on discharge at home. CONDITION ON DISCHARGE: Guarded. ACTIVITY: Ad chelsea. DIET: Regular. CODE STATUS: FULL. SPECIAL INSTRUCTIONS: Nocturnal CPAP I/E 02/05 with 35% FiO2 and rate of 12. DISPOSITION: Home with [facility] on 03/15/2017. Total time preparing and coordinating discharge is 33 minutes.
--- NOTE | 2017-03-27 08:49 | PQF ---
I DO NOT BELIEVE I SAW THIS PATIENT. THANKS. JACK PORTILLO DAVID [id number] [place] [id number] CLINICAL DOCUMENTATION CLARIFICATION FORM: POST DISCHARGE Addendum to original discharge summary date: ____ Late entry note date: __ JACK PORTILLO [id number] LAISHA WAYNE PLEASE DOCUMENT YOUR RESPONSE BELOW PLEASE FAX RESPONSE BACK TO [phone] YOUR INPUT IS NEEDED TO CORRECTLY CODE A DIAGNOSIS FOR YOUR PATIENT. DATE: 03/27/17 ATTN: Dr. Wayne Please exercise your independent, professional judgment in responding to the clarification form. Clinical indicators are provided on the bottom of this form for your review Please check appropriate box(s) to clarify if the following diagnosis has been ruled in our ruled out: Acute respiratory falure (CDI/Coding list diagnosis here) [ ] Ruled in diagnosis [ ] Continue to treat [ ] Resolved [ ] Ruled out diagnosis [ ] Cannot rule out diagnosis [ ] Other diagnosis [ ] Unable to determine In addition, please specify: Present on Admission (POA): [ ] Yes [ ] No [ ] Unable to determine CLINICAL INDICATORS - SIGNS / SYMPTOMS / LABS - H&P by Dr. Rodriguez states "admit for pneumonia with acute respiratory failure" - patient initially put on Bipap - Dr. Cruz on his progress notes states as subjective acute on chronic respiratory failure - O2 sats are down to 95% on admission MTDD
--- NOTE | 2017-04-01 13:45 | PQF ---
LINDSEYJACK CHARLES DO [id number] [facility] [id number] CLINICAL DOCUMENTATION CLARIFICATION FORM: POST DISCHARGE Addendum to original discharge summary date: ____ Late entry note date: __ JACK PORTILLO [id number] LAISHA BETANCOURT PLEASE DOCUMENT YOUR RESPONSE BELOW PLEASE FAX RESPONSE BACK TO [phone] YOUR INPUT IS NEEDED TO CORRECTLY CODE A DIAGNOSIS FOR YOUR PATIENT. DATE: 04/01/17 ATTN: Dr. Cruz Please exercise your independent, professional judgment in responding to the clarification form. Clinical indicators are provided on the bottom of this form for your review Please check appropriate box(s) to clarify if the following diagnosis has been ruled in our ruled out: Acute respiratory failure (CDI/Coding list diagnosis here) [ x ] Ruled in diagnosis [ ] Continue to treat [ x ] Resolved [ ] Ruled out diagnosis [ ] Cannot rule out diagnosis [ ] Other diagnosis [ ] Unable to determine In addition, please specify: Present on Admission (POA): [ x ] Yes [ ] No [ ] Unable to determine CLINICAL INDICATORS - SIGNS / SYMPTOMS / LABS - H&P by Dr. Rodriguez states "admit for pneumonia and respiratory failure" - Patient inially put on BIPAP - Dr. Cruz on his progress note states as subjective a/c respiratory failure O2 sats are down to 95% on admission RISK FACTORS MTDD
== END 2017-03-15 18:35 | disposition hospice, home (50) | DRG 194 ==
LOC: ERS 18:18 → IMCU/EMU 03-14 00:07
PROVIDERS: ADMIT Internal Medicine; ATTEND Internal Medicine
PROC: 5A09357 Assistance with Respiratory Ventilation, Less than 24 Consecutive Hours, Continuous Positive Airway Pressure (ICD-10-PCS; principal; 2017-03-14)
DX: J15.9 Unspecified bacterial pneumonia (principal); J44.0 Chronic obstructive pulmonary disease with (acute) lower respiratory infection; R64 Cachexia; J96.10 Chronic respiratory failure, unspecified whether with hypoxia or hypercapnia; E44.0 Moderate protein-calorie malnutrition; R13.10 Dysphagia, unspecified; J44.1 Chronic obstructive pulmonary disease with (acute) exacerbation; C34.90 Malignant neoplasm of unspecified part of unspecified bronchus or lung; Z68.1 Body mass index [BMI] 19.9 or less, adult; J69.0 Pneumonitis due to inhalation of food and vomit; Y95 Nosocomial condition; I35.0 Nonrheumatic aortic (valve) stenosis; R53.81 Other malaise; F17.210 Nicotine dependence, cigarettes, uncomplicated; Z51.5 Encounter for palliative care; Z86.14 Personal history of Methicillin resistant Staphylococcus aureus infection; I10 Essential (primary) hypertension
CPT/HCPCS: 36415; 71045; 80048; 80053; 80202; 82550; 82553; 82805; 83605; 83735; 83880; 84484; 85007; 85025; 85027; 87040; 93005; 93306; 94640; 94660; 94664; 96365; 96367; 99406; G8987-GO-CL; G8988-GO-CJ; G8996-GN-CN; G8997-GN-CK; J2543; J3370; J7050; J7620